=== PATIENT | female | born 1955 | race Caucasian/White ===

== ENCOUNTER → 2016-10-21 | Outpatient (CLI) | payer BC ==
[2016-10-21 07:53] LABS: Basophils % (A) 1 %; CH 31.5; CHCM 31.5; Eosinophils # (A) 0.2 k/uL (0-0.7); Eosinophils % (A) 6 %; HCT 41.3 % (34.0-46.0); HDW 2.31; HGB 12.9 gm/dL (11.4-16.0); Luc # (Auto) 0.12; Luc % (Auto) 3; Lymphocytes # (A) 1.4 k/uL (1.0-4.8); Lymphocytes % (A) 31 %; MCH 31.4 pg (25.0-35.0); MCHC 31.3 g/dL (31.0-37.0); MCV 100.5 fL (80.0-100.0); Mean Platelet Volume 7.6; Monocytes # (A) 0.3 k/uL (0-1.0); Monocytes % (A) 6 %; Neutrophils # (A) 2.3 k/uL (1.3-7.7); Neutrophils % (A) 53 %; RBC 4.11 m/uL (3.80-5.40); RDW 13.1 % (11.5-15.5); WBC 4.3 k/uL (3.8-10.6); WBC (Perox) 3.89
[2016-10-21 07:59] LABS: ALT 30 U/L (9-52); AST 22 U/L (14-36); Alkaline Phosphatase 36 U/L (38-126); Anion Gap 8 mmol/L; Blood Urea Nitrogen 22 mg/dL (7-17); Calcium 9.2 mg/dL (8.4-10.2); Carbon Dioxide 28 mmol/L (22-30); Chloride 108 mmol/L (98-107); Cholesterol 200 mg/dL (<200); Glucose 100 mg/dL (74-99); HDL Cholesterol 87 mg/dL (40-60); Non-African American GFR(MDRD) 59 (>60 ml/min/1.73 sqM); Potassium 5.5 mmol/L (3.5-5.1); Sodium 144 mmol/L (137-145); Total Bilirubin 0.5 mg/dL (0.2-1.3); Total Protein 6.5 g/dL (6.3-8.2); Triglycerides 97 mg/dL (<150)
== END ==
LOC: LABWHC1 07:10
PROVIDERS: ATTEND Family Medicine
DX: Z00.00 Encounter for general adult medical examination without abnormal findings (principal)
CPT/HCPCS: 36415; 80053; 80061; 82306; 84439; 84443; 85025

== ENCOUNTER → 2016-12-04 | Outpatient (CLI) | payer BC ==
--- NOTE | 2016-12-05 09:57 | BD ---
EXAMINATION TYPE: MG DEXA axial skeleton. DATE OF EXAM: 12/04/2016 3:44 PM COMPARISON: 06.25.2014 CLINICAL HISTORY: M81.0 OSTERPOROSIS Height: 63 Weight: 140 FRAX RISK QUESTIONS: Alcohol (3 or more units per day): NO Family History (Parent hip fracture): YES Glucocorticoids (More than 3mos): NO (Ex: prednisone, prednisolone, methylprednisolone, dexamethasone, and hydrocortisone). History of Fracture in Adulthood: NO Secondary Osteoporosis: NO 1. Type 1 Diabetes: NO 2. Hyperthyroidism: NO 3. Menopause before 45: NO 4. Malnutrition: NO 5. Chronic liver disease: NO Rheumatoid Arthritis: NO Current Tobacco Use: NO RISK FACTORS HISTORY OF: Family History of Osteoporosis: YES, MOTHER,BROKEN BONES BUT NOT HIP Smoke tobacco: NO Drink Alcohol: SOCIAL Active: YES Diet low in dairy products/other sources of calcium: NO Postmenopausal woman: AT 50 YRS OLD Lost more than 2 inches in height since high school: NO Adrenal Insufficiency: NO MEDICATIONS: Thyroid Medications: SYNTHROID How Long: SINCE AGE 19 YRS OLD Osteoporosis Medications: PROLIA INJ How Lon YRS Additional Medications: BP MEDS, ATIVAN PRN, VIT D Additional History: NONE TO NOTE EXAM MEASUREMENTS: Bone mineral densitometry was performed using the [employer] System. Bone mineral density as measured about the Lumbar spine is: ----- L1-L4(G/cm2): 0.953 T Score Values are as follows: ----- L1: -3.6 ----- L2: -2.5 ----- L3: -1.1 ----- L4: -0.8 ----- L1-L4: -1.9 Bone mineral density has: Increased 7.2% since study of: 06.25.2014 Bone mineral density about the R hip (g/cm2): 0.709 Bone mineral density about the L hip (g/cm2): 0.755 T Score values are as follows: -----R Neck: -2.4 -----L Neck: -2.1 -----R Intertrochanter: -2.2 -----L Intertrochanter: -2.0 Bone mineral density has: Increased 3.1% since study of: 06.25.2014 FRAX %'S: 11.5% CHANCE OF A MAJOR OSTEOPOROTIC FX AND A 2.1% FOR A HIP FX.....PROBABILITY OF FX IN 10 YRS TIME IMPRESSION: Osteoporosis (T Score less than -2.5) as noted by T Score values at the There is increased fracture risk and therapy is usually indicated based on age. Re-Screen 1-2 years . FOR HER SPINE AT THE L1 AND L2 SITE ONLY NOTE: T-SCORE=SD OF THE YOUNG ADULT MEAN.
--- NOTE | 2016-12-05 11:03 | MM ---
Reason for exam: screening (asymptomatic). Last mammogram was performed 2 years and 6 months ago. History: Patient is postmenopausal. Physical Findings: A clinical breast exam by your physician is recommended on an annual basis and results should be correlated with mammographic findings. MG Screening Mammo w CAD Bilateral CC and MLO view(s) were taken. Prior study comparison: June 04, 2014, bilateral MG diagnostic mammo w CAD JEAN-PIERRE. June 03, 2013, bilateral digital screening mammo w/CAD. The breast tissue is heterogeneously dense. This may lower the sensitivity of mammography. There is no discrete abnormality. No significant changes when compared with prior studies. ASSESSMENT: Negative, BI-RAD 1 RECOMMENDATION: Routine screening mammogram of both breasts in 1 year.
== END | disposition home or self-care (01) ==
LOC: RADMAMWWP 15:00
PROVIDERS: ATTEND Family Medicine
DX: Z12.31 Encounter for screening mammogram for malignant neoplasm of breast (principal); M81.0 Age-related osteoporosis without current pathological fracture
CPT/HCPCS: 77080; G0202

== ENCOUNTER → 2017-01-31 | Outpatient (CLI) | payer BC ==
[2017-01-31 15:40] LABS: ALT 26 U/L (9-52); AST 24 U/L (14-36); Alkaline Phosphatase 39 U/L (38-126); Anion Gap 9 mmol/L; Blood Urea Nitrogen 22 mg/dL (7-17); Calcium 9.2 mg/dL (8.4-10.2); Carbon Dioxide 28 mmol/L (22-30); Chloride 104 mmol/L (98-107); Glucose 81 mg/dL (74-99); Non-African American GFR(MDRD) >60 (>60 ml/min/1.73 sqM); Potassium 4.7 mmol/L (3.5-5.1); Sodium 141 mmol/L (137-145); Total Bilirubin 0.6 mg/dL (0.2-1.3); Total Protein 6.5 g/dL (6.3-8.2)
[2017-02-02 16:03] LABS: Mis test requested (Blood) Collagen Type 1(CTX)
[2017-02-03 18:38] LABS: Creatinine Urine Random 50.6 mg/dL (20.0-320.0)
== END | disposition home or self-care (01) ==
LOC: LABWHC1 14:48
PROVIDERS: ATTEND Internal Medicine Endocrinology, Diabetes & Metabolism
DX: E03.8 Other specified hypothyroidism (principal); M81.8 Other osteoporosis without current pathological fracture
CPT/HCPCS: 36415; 80053; 82306; 82523; 83970; 84443

== ENCOUNTER → 2017-10-27 | Outpatient (CLI) | payer BC ==
[2017-10-27 08:46] LABS: Basophils % (A) 1 %; Eosinophils # (A) 0.3 k/uL (0-0.7); Eosinophils % (A) 6 %; HCT 40.8 % (34.0-46.0); HGB 12.8 gm/dL (11.4-16.0); Lymphocytes # (A) 1.1 k/uL (1.0-4.8); Lymphocytes % (A) 26 %; MCH 30.3 pg (25.0-35.0); MCHC 31.3 g/dL (31.0-37.0); MCV 96.8 fL (80.0-100.0); Mean Platelet Volume 7.2; Monocytes # (A) 0.3 k/uL (0-1.0); Monocytes % (A) 7 %; Neutrophils # (A) 2.5 k/uL (1.3-7.7); Neutrophils % (A) 59 %; Platelet Count 244 k/uL (150-450); RBC 4.21 m/uL (3.80-5.40); WBC 4.3 k/uL (3.8-10.6)
[2017-10-27 09:01] LABS: ALT 24 U/L (9-52); AST 22 U/L (14-36); Albumin 3.7 g/dL (3.5-5.0); Alkaline Phosphatase 38 U/L (38-126); Anion Gap 7 mmol/L; Blood Urea Nitrogen 17 mg/dL (7-17); Calcium 8.7 mg/dL (8.4-10.2); Carbon Dioxide 27 mmol/L (22-30); Chloride 109 mmol/L (98-107); Cholesterol 185 mg/dL (<200); Glucose 84 mg/dL (74-99); HDL Cholesterol 80 mg/dL (40-60); LDL Cholesterol,Calculated 93 mg/dL (0-99); Potassium 4.8 mmol/L (3.5-5.1); Sodium 143 mmol/L (137-145); Total Bilirubin 0.4 mg/dL (0.2-1.3); Total Protein 6.2 g/dL (6.3-8.2); Triglycerides 61 mg/dL (<150)
[2017-10-27 09:15] LABS: T4, Free (Free Thyroxine) 1.71 ng/dL (0.78-2.19)
== END | disposition home or self-care (01) ==
LOC: LABWHC1 08:00
PROVIDERS: ATTEND Internal Medicine Endocrinology, Diabetes & Metabolism
DX: Z00.00 Encounter for general adult medical examination without abnormal findings (principal); M81.0 Age-related osteoporosis without current pathological fracture
CPT/HCPCS: 36415; 80053; 80061; 82523; 84439; 84443; 85025

== ENCOUNTER → 2018-01-18 | Outpatient (CLI) | payer BC ==
--- NOTE | 2018-01-22 07:07 | MM ---
Reason for exam: screening (asymptomatic). Last mammogram was performed 1 year and 1 month ago. History: Patient is postmenopausal. Physical Findings: A clinical breast exam by your physician is recommended on an annual basis and results should be correlated with mammographic findings. MG 3D Screening Mammo W/Cad Bilateral CC and MLO view(s) were taken. Prior study comparison: December 04, 2016, bilateral MG screening mammo w CAD. June 04, 2014, bilateral MG diagnostic mammo w CAD JEAN-PIERRE. There are scattered fibroglandular densities. Finding: There are typically benign round calcifications in the left breast. There is no discrete abnormality. ASSESSMENT: Benign, BI-RAD 2 RECOMMENDATION: Routine screening mammogram of both breasts in 1 year.
== END | disposition home or self-care (01) ==
LOC: RADMAMWWP 10:57
PROVIDERS: ATTEND Family Medicine
DX: Z12.31 Encounter for screening mammogram for malignant neoplasm of breast (principal)
CPT/HCPCS: 77063; 77067

== ENCOUNTER → 2018-09-14 | Outpatient (CLI) | payer OTHER ==
[2018-09-14 16:17] LABS: Parathyroid Hormone Intact 55.9 pg/mL (14.0-72.0)
[2018-09-14 16:37] LABS: Vitamin D 25 Hydroxy 26.5 ng/mL (30.0-100.0)
[2018-09-14 17:09] LABS: Albumin/Globulin Ratio 2.11 (1.60-3.17); Anion Gap 5.8 mmol/L (4.00-12.00); Calcium 9.1 mg/dL (8.7-10.3); Carbon Dioxide 28.2 mmol/L (21.6-31.8); Globulin 1.9 g/dL (1.6-3.3); Potassium 4.8 mmol/L (3.5-5.5); Total Bilirubin 0.5 mg/dL (0.2-1.2); Total Protein 5.9 g/dL (6.2-8.2)
== END | disposition home or self-care (01) ==
LOC: LABWHC1 09:06
PROVIDERS: ATTEND Internal Medicine Endocrinology, Diabetes & Metabolism
DX: M81.0 Age-related osteoporosis without current pathological fracture (principal)
CPT/HCPCS: 36415; 80053; 82306; 82523; 83970; 84443

== ENCOUNTER → 2019-02-20 | Outpatient (CLI) | payer OTHER ==
[2019-02-20 08:28] LABS: Basophils % (A) 0 %; Eosinophils # (A) 0.2 k/uL (0-0.7); Eosinophils % (A) 2 %; HCT 41.9 % (34.0-46.0); HGB 12.8 gm/dL (11.4-16.0); Lymphocytes % (A) 10 %; MCH 29.4 pg (25.0-35.0); MCHC 30.5 g/dL (31.0-37.0); MCV 96.4 fL (80.0-100.0); Mean Platelet Volume 6.8; Monocytes # (A) 0.6 k/uL (0-1.0); Monocytes % (A) 6 %; Neutrophils # (A) 7.9 k/uL (1.3-7.7); Neutrophils % (A) 81 %; Platelet Count 270 k/uL (150-450); RBC 4.35 m/uL (3.80-5.40); RDW 13.6 % (11.5-15.5); WBC 9.8 k/uL (3.8-10.6)
[2019-02-20 11:46] LABS: African American GFR (CKD) 91.6 (60.0-200.0); Albumin 4.3 g/dL (3.80-4.90); Albumin/Globulin Ratio 2.26 (1.60-3.17); Anion Gap 5.3 mmol/L (4.00-12.00); BUN/Creat Ratio 33.75 Ratio (12.00-20.00); Calcium 9.6 mg/dL (8.7-10.3); Carbon Dioxide 27.7 mmol/L (21.6-31.8); Globulin 1.9 g/dL (1.6-3.3); Potassium 5.9 mmol/L (3.5-5.5); Total Bilirubin 0.4 mg/dL (0.2-1.2); Total Protein 6.2 g/dL (6.2-8.2)
[2019-02-20 11:48] LABS: Parathyroid Hormone Intact 56.1 pg/mL (14.0-72.0)
[2019-02-20 11:55] LABS: T4, Free (Free Thyroxine) 1.4 ng/dL (0.80-1.80)
== END | disposition home or self-care (01) ==
LOC: LABWHC1 07:39
PROVIDERS: ATTEND Internal Medicine Endocrinology, Diabetes & Metabolism
DX: Z00.00 Encounter for general adult medical examination without abnormal findings (principal); M81.0 Age-related osteoporosis without current pathological fracture
CPT/HCPCS: 36415; 80053; 80061; 82306; 82523; 83970; 84439; 84443; 85025

== ENCOUNTER → 2019-03-05 | Outpatient (CLI) | payer OTHER ==
--- NOTE | 2019-03-05 09:41 | BD ---
EXAMINATION TYPE: Axial Bone Density DATE OF EXAM: 03/05/2019 COMPARISON: 12/07/2016 CLINICAL HISTORY: Postmenopausal female with osteoporosis per order. Height: 64 IN Weight: 147 LBS FRAX RISK QUESTIONS: Family History (Parent hip fracture): YES FATHER HIP FRACTURE RISK FACTORS HISTORY OF: Family History of Osteoporosis: YES MOTHER Active: YES Postmenopausal woman: AGE 49 MEDICATIONS: Thyroid Medications: YES Which medication: SYNTHROID How Long: SINCE AGE 19 Osteoporosis Medications: Which medication: Prolia How Lon YEARS Additional Medications: SYNTHROID, EXAM MEASUREMENTS: Bone mineral densitometry was performed using the [employer] System. Bone mineral density as measured about the Lumbar spine is: ----- L1-L4(G/cm2): 1.006 T Score Values are as follows: ----- L2: -2.1 ----- L3: -0.8 ----- L4: -0.1 ----- L1-L4: -1.4 Bone mineral density has: Increased 6.0% since study of: 12/07/2016 Bone mineral density about the R hip (g/cm2): 0.699 Bone mineral density about the L hip (g/cm2): 0.743 T Score values are as follows: -----R Neck: -2.4 -----L Neck: -2.1 -----R Total: -2.4 -----L Total: -2.0 Bone mineral density has: Decreased -0.7% since study of: 12/07/2016 IMPRESSION: Osteopenia (T Score between -2.5 and -1) now present overall. There is slightly increased risk of fracture and the patient may be considered for treatment. Re-Screen 2-5 years. NOTE: T-SCORE=SD OF THE YOUNG ADULT MEAN.
== END | disposition home or self-care (01) ==
LOC: RADBDWWP 08:08
PROVIDERS: ATTEND Internal Medicine Endocrinology, Diabetes & Metabolism
DX: M85.80 Other specified disorders of bone density and structure, unspecified site (principal)
CPT/HCPCS: 77080

== ENCOUNTER → 2019-03-05 | Outpatient (CLI) | payer OTHER ==
--- NOTE | 2019-03-05 13:12 | MM ---
Reason for exam: screening (asymptomatic). Last mammogram was performed 1 year and 2 months ago. History: Patient is postmenopausal. Physical Findings: A clinical breast exam by your physician is recommended on an annual basis and results should be correlated with mammographic findings. MG 3D Screening Mammo W/Cad Bilateral CC and MLO view(s) were taken. Prior study comparison: January 18, 2018, bilateral MG 3d screening mammo w/cad. December 04, 2016, bilateral MG screening mammo w CAD. There are scattered fibroglandular densities. There are benign appearing round calcifications in the left breast. There is no discrete abnormality. ASSESSMENT: Benign, BI-RAD 2 RECOMMENDATION: Routine screening mammogram of both breasts in 1 year.
== END | disposition home or self-care (01) ==
LOC: RADMAMWWP 08:06
PROVIDERS: ATTEND Family Medicine
DX: Z12.31 Encounter for screening mammogram for malignant neoplasm of breast (principal)
CPT/HCPCS: 77063; 77067

== ENCOUNTER → 2019-05-07 | Outpatient (CLI) | payer OTHER ==
[2019-05-07 21:57] LABS: African American GFR (CKD) 69.9 (60.0-200.0); Albumin 4.3 g/dL (3.80-4.90); Albumin/Globulin Ratio 2.26 (1.60-3.17); Anion Gap 10.8 mmol/L (4.00-12.00); Calcium 9.4 mg/dL (8.7-10.3); Carbon Dioxide 24.2 mmol/L (21.6-31.8); Globulin 1.9 g/dL (1.6-3.3); Potassium 5.1 mmol/L (3.5-5.5); Total Bilirubin 0.4 mg/dL (0.3-1.2); Total Protein 6.2 g/dL (6.2-8.2)
== END ==
LOC: LABWHC1 13:54
PROVIDERS: ATTEND Internal Medicine Endocrinology, Diabetes & Metabolism
DX: E03.8 Other specified hypothyroidism (principal); M81.0 Age-related osteoporosis without current pathological fracture
CPT/HCPCS: 36415; 80053; 82306; 84443

== ENCOUNTER → 2019-07-30 | Outpatient (CLI) | payer OTHER | END | disposition home or self-care (01) | LOC: LABWHC1 11:41 | PROVIDERS: ATTEND Internal Medicine Endocrinology, Diabetes & Metabolism | DX: M81.0 Age-related osteoporosis without current pathological fracture (principal) | CPT/HCPCS: 36415; 84443 ==

== ENCOUNTER → 2019-08-11 | Outpatient (CLI) | payer OTHER ==
[2019-08-11 13:56] LABS: Basophils % (A) 1 %; Eosinophils # (A) 0.1 k/uL (0-0.7); Eosinophils % (A) 1 %; HGB 13.8 gm/dL (11.4-16.0); Lymphocytes # (A) 0.9 k/uL (1.0-4.8); Lymphocytes % (A) 11 %; MCH 31.9 pg (25.0-35.0); MCHC 32.9 g/dL (31.0-37.0); MCV 97.1 fL (80.0-100.0); Mean Platelet Volume 7.2; Monocytes # (A) 0.5 k/uL (0-1.0); Monocytes % (A) 7 %; Neutrophils # (A) 6.5 k/uL (1.3-7.7); Neutrophils % (A) 80 %; Platelet Count 333 k/uL (150-450); RBC 4.33 m/uL (3.80-5.40); RDW 13.3 % (11.5-15.5); WBC 8.1 k/uL (3.8-10.6)
[2019-08-11 14:12] LABS: Appearance,Urine Clear (Clear); Bilirubin,Urine Negative (Negative); Blood,Urine Negative (Negative); Color,Urine Light Yellow; Glucose,Urine (UA) Negative (Negative); Ketones,Urine Negative (Negative); Leukocyte Esterase,Urine Negative (Negative); Nitrite,Urine Negative (Negative); Protein,Urine Negative (Negative); Specific Gravity,Urine 1.006 (1.001-1.035); Urobilinogen,Urine <2.0 mg/dL (<2.0)
== END | disposition home or self-care (01) ==
LOC: LABWHC1 11:05
PROVIDERS: ATTEND Orthopaedic Surgery Orthopaedic Surgery of the Spine
DX: M48.061 Spinal stenosis, lumbar region without neurogenic claudication (principal)
CPT/HCPCS: 36415; 81003; 85025

== ENCOUNTER → 2019-10-23 | Outpatient (CLI) | payer OTHER ==
[2019-10-23 11:23] LABS: African American GFR (CKD) 107.6 (60.0-200.0); Albumin 3.9 g/dL (3.80-4.90); Albumin/Globulin Ratio 1.86 (1.60-3.17); BUN/Creat Ratio 22.86 Ratio (12.00-20.00); Globulin 2.1 g/dL (1.6-3.3); Non-African American GFR(CKD) 92.9 (60.0-200.0); Total Bilirubin 0.4 mg/dL (0.2-1.2)
== END ==
LOC: LABWHC1 07:37
PROVIDERS: ATTEND Internal Medicine Endocrinology, Diabetes & Metabolism
DX: M81.0 Age-related osteoporosis without current pathological fracture (principal)
CPT/HCPCS: 36415; 80053; 82306; 84443

== ENCOUNTER → 2020-05-18 | Outpatient (CLI) | payer OTHER ==
[2020-05-18 09:56] LABS: Basophils # (A) 0.1 k/uL (0-0.2); Basophils % (A) 1 %; Eosinophils # (A) 0.5 k/uL (0-0.7); Eosinophils % (A) 8 %; HCT 43.5 % (34.0-46.0); HGB 13.8 gm/dL (11.4-16.0); Lymphocytes # (A) 1.1 k/uL (1.0-4.8); Lymphocytes % (A) 20 %; MCH 31.1 pg (25.0-35.0); MCHC 31.8 g/dL (31.0-37.0); MCV 97.9 fL (80.0-100.0); Mean Platelet Volume 7.1; Monocytes # (A) 0.4 k/uL (0-1.0); Monocytes % (A) 6 %; Neutrophils # (A) 3.7 k/uL (1.3-7.7); Neutrophils % (A) 64 %; Platelet Count 258 k/uL (150-450); RBC 4.45 m/uL (3.80-5.40); WBC 5.8 k/uL (3.8-10.6)
[2020-05-18 16:19] LABS: African American GFR (CKD) 90.9 (60.0-200.0); Anion Gap 10.1 mmol/L (4.00-12.00); Calcium 9.3 mg/dL (8.7-10.3); Carbon Dioxide 25.9 mmol/L (21.6-31.8); Chol/HDL Ratio 3.47; LDL Cholesterol,Calculated 142.2 mg/dL (0.0-131.0); Non-African American GFR(CKD) 78.5 (60.0-200.0); Total Bilirubin 0.4 mg/dL (0.3-1.2); VLDL Calculation 25.8 mg/dL (5.00-40.00)
[2020-05-18 16:27] LABS: T4, Free (Free Thyroxine) 1.6 ng/dL (0.80-1.80)
== END | disposition home or self-care (01) ==
LOC: LABWHC1 08:52
PROVIDERS: ATTEND Internal Medicine Endocrinology, Diabetes & Metabolism
DX: E78.5 Hyperlipidemia, unspecified (principal); E03.9 Hypothyroidism, unspecified; M81.0 Age-related osteoporosis without current pathological fracture
CPT/HCPCS: 36415; 80053; 80061; 82306; 82523; 83970; 84439; 84443; 84481; 85025

== ENCOUNTER → 2020-06-17 | Outpatient (CLI) | payer OTHER ==
--- NOTE | 2020-06-18 14:47 | MM ---
Reason for exam: screening (asymptomatic). Last mammogram was performed 1 year and 3 months ago. History: Patient is postmenopausal. Physical Findings: A clinical breast exam by your physician is recommended on an annual basis and results should be correlated with mammographic findings. MG 3D Screening Mammo W/Cad Bilateral CC and MLO view(s) were taken. Prior study comparison: March 05, 2019, bilateral MG 3d screening mammo w/cad. January 18, 2018, bilateral MG 3d screening mammo w/cad. There are scattered fibroglandular densities. No significant changes when compared with prior studies. ASSESSMENT: Benign, BI-RAD 2 RECOMMENDATION: Routine screening mammogram of both breasts in 1 year.
== END | disposition home or self-care (01) ==
LOC: RADMAMWWP 07:57
PROVIDERS: ATTEND Family Medicine
DX: Z12.31 Encounter for screening mammogram for malignant neoplasm of breast (principal)
CPT/HCPCS: 77063; 77067

== ENCOUNTER 2021-01-02 15:54 | Emergency (ER) | payer OTHER ==
[2021-01-02 16:20] VITALS: TEMP 98.5
[2021-01-02] MEDS ORDERED: HYDROmorphone 1 MG/ML 1 ML SYRINGE IM STA ×2 (16:54→18:01)
--- NOTE | 2021-01-02 16:58 | ED ---
Back Pain HPI - General Chief Complaint: Back Pain/Injury Stated Complaint: post op back pain Time Seen by Provider: 01/02/21 16:28 Source: patient - History of Present Illness Initial Comments: 65-year-old female history chronic back pain presents to emergency department with a chief complaint of back pain. Patient reports about one year ago she's underwent a lumbar fusion of L1 to L3 and has been mentioned pain with gabapentin and Flexeril alone. She states recently she went to another surgeon who advised her that she needs extensive revision of the fusion and she is currently setting up appointments with the [facility]. Patient reports the pain is not tolerable anymore and she is not able to an early due to the pain. She reports it feels like her "back is locked up". Reports the pain is rating distally over the left lower extremity. She also reported developing unilateral leg swelling over the past week but denies any chest pain or shortness of breath. Patient was given 100 g of fentanyl. She denies any saddle anesthesia, urinary retention with overflow incontinence or bowel incontinence. - Related Data Home Medications Medication Instructions Recorded Confirmed Metoprolol Succinate [Toprol XL] 25 mg PO DAILY 12/16/14 08/09/16 Aspirin [Adult Low Dose Aspirin EC] 81 mg PO DAILY 06/30/15 08/09/16 Levothyroxine Sodium [Levoxyl] 100 mcg PO DAILY 08/09/16 08/09/16 Previous Rx's Medication Instructions Recorded Ketorolac [Toradol] 10 mg PO Q8HR #15 tab 01/02/21 Allergies Allergy/AdvReac Type Severity Reaction Status Date / Time codeine Allergy Unknown Verified 08/09/16 15:16 erythromycin base Allergy Unknown Verified 08/09/16 15:16 [Erythromycin Base] metronidazole [From Flagyl] Allergy Rash/Hives Verified 01/02/21 16:21 amoxicillin trihydrate AdvReac Unknown Verified 01/02/21 16:21 [From Augmentin] potassium clavulanate AdvReac Unknown Verified 01/02/21 16:21 [From Augmentin] Review of Systems ROS Statement: Those systems with pertinent positive or pertinent negative responses have been documented in the HPI. ROS Other: All systems not noted in ROS Statement are negative. Past Medical History Past Medical History: Thyroid Disorder Additional Past Medical History / Comment(s): hypothyroid History of Any Multi-Drug Resistant Organisms: None Reported Past Surgical History: Back Surgery, Section, Cholecystectomy, Hysterectomy, Orthopedic Surgery Additional Past Surgical History / Comment(s): varicose vein, right shoulder, hemmroidectomy, sinus surgery, fusion S1-L3 Past Psychological History: Anxiety Smoking Status: Never smoker Past Alcohol Use History: Occasional Past Drug Use History: None Reported General Exam Limitations: physical limitation General appearance: alert, in no apparent distress, anxious Head exam: Present: atraumatic, normocephalic, normal inspection Eye exam: Present: normal appearance, PERRL, EOMI Pupils: Present: normal accommodation ENT exam: Present: normal exam, normal oropharynx, mucous membranes moist Neck exam: Present: normal inspection, full ROM. Absent: tenderness, lymphadenopathy Respiratory exam: Present: normal lung sounds bilaterally. Absent: respiratory distress Cardiovascular Exam: Present: regular rate, normal rhythm, normal heart sounds GI/Abdominal exam: Present: soft. Absent: distended, tenderness, guarding, rebound Extremities exam: Present: normal inspection, full ROM, normal capillary refill, pedal edema (+1 pitting edema left lower extremity). Absent: joint swelling, calf tenderness Back exam: Present: normal inspection, full ROM, tenderness, muscle spasm, paraspinal tenderness (Left paraspinal tenderness along the left lower extremity), vertebral tenderness Neurological exam: Present: alert, oriented X3 Psychiatric exam: Present: normal affect, normal mood Skin exam: Present: warm, dry, intact, normal color Course Vital Signs 01/02/21 01/02/21 01/02/21 16:12 18:04 19:05 Temperature 98.5 F Pulse Rate 75 72 70 Respiratory 20 18 16 Rate Blood Pressure 207/110 203/81 170/75 O2 Sat by Pulse 98 100 100 Oximetry Medical Decision Making - Medical Decision Making 65-year-old female history chronic back pain presents to emergency department with a chief complaint of back pain. This is acute on chronic back pain. She said CT imaging within the last month showing no acute findings of her lumbar spine. She also had MRI imaging or lumbar spine within the last year. She is attempting to get in contact with the [facility] spine surgery Department. Patient received Toradol, Dilaudid and emergency department which helped improve her symptoms. She reports the pain is much more bearable not. I did give her 5 days of Toradol prescription. She will also be discharged with Tylenol 3 starter pack. No concern for cauda equina at this time. Return parameters were thoroughly discussed with patient who is understandable agreeable. Case discussed with Disposition Clinical Impression: Mechanical back pain Disposition: HOME SELF-CARE Condition: Stable Instructions (If sedation given, give patient instructions): Acute Low Back Pain (ED) Additional Instructions: Temperature medication as directed. Return to emergency department if symptoms worsen. Prescriptions: Ketorolac [Toradol] 10 mg PO Q8HR #15 tab Is patient prescribed a controlled substance at d/c from ED?: No Referrals: Juan C Cantu MD [Primary Care Provider] - 1-2 days Time of Disposition: 19:23
[2021-01-02] MEDS ORDERED: KETOROLAC 15 MG/ML 1 ML VIAL IVP STA (18:01)
--- NOTE | 2021-01-02 18:19 | US ---
EXAMINATION TYPE: US venous doppler duplex LE LT DATE OF EXAM: 01/02/2021 5:22 PM COMPARISON: NONE CLINICAL HISTORY: Unilateral of swelling. left leg swelling for 1 week, h/o DVT within left leg in 20 05, not on thinners currently SIDE PERFORMED: Left TECHNIQUE: The lower extremity deep venous system is examined utilizing real time linear array sonog kristy with graded compression, doppler sonography and color-flow sonography. VESSELS IMAGED: Common Femoral Vein Deep Femoral Vein Greater Saphenous Vein * Femoral Vein Popliteal Vein Small Saphenous Vein * Proximal Calf Veins (* superficial vessels) Left Leg: Negative for DVT IMPRESSION: No evidence of left lower extremity DVT.
[2021-01-02 19:06] VITALS: BP 170/75; PULSE 70; RESP 16
[2021-01-02] MEDS ORDERED: ACET/COD 300 MG/30 MG STARTER PACK 6 TAB BTL PO STA (19:23)
== END 2021-01-02 19:29 | disposition home or self-care (01) ==
LOC: EC 15:54
DX: M54.9 Dorsalgia, unspecified (principal); G89.29 Other chronic pain; M79.89 Other specified soft tissue disorders; M79.605 Pain in left leg; E03.9 Hypothyroidism, unspecified; F41.9 Anxiety disorder, unspecified; Z79.890 Hormone replacement therapy; Z79.82 Long term (current) use of aspirin
CPT/HCPCS: 93971; 99284; 96374; 96372 ×2; J1170; J1885

== ENCOUNTER → 2021-01-18 | Outpatient (CLI) | payer OTHER ==
[2021-01-22 00:53] LABS: Creatinine Urine Random 32 mg/dL (20-275); N-Telopeptides/Creat Ratio, Ur 31
== END | disposition home or self-care (01) ==
LOC: LABWHC1 12:57
PROVIDERS: ATTEND Internal Medicine Endocrinology, Diabetes & Metabolism
DX: E03.8 Other specified hypothyroidism (principal); M81.0 Age-related osteoporosis without current pathological fracture
CPT/HCPCS: 36415; 82306; 82523; 83970; 84443

== ENCOUNTER → 2021-04-15 | Outpatient (CLI) | payer OTHER ==
[2021-04-16 18:26] LABS: African American GFR (CKD) 78.3 (60.0-200.0); Non-African American GFR(CKD) 67.6 (60.0-200.0)
== END | disposition home or self-care (01) ==
LOC: LABWHC1 11:52
PROVIDERS: ATTEND Specialist
DX: M81.0 Age-related osteoporosis without current pathological fracture (principal)
CPT/HCPCS: 36415; 82565; 84520

== ENCOUNTER → 2021-07-29 | Outpatient (CLI) | payer OTHER ==
--- NOTE | 2021-07-29 11:16 | XR ---
EXAMINATION TYPE: XR abdomen 2V DATE OF EXAM: 07/29/2021 COMPARISON: NONE HISTORY: Presurgical TECHNIQUE: One view abdominal series FINDINGS: Postsurgical changes involving the vertebral column. Surgical change right upper quadrant. Lung bases clear. Diffuse osteopenia. Arthropathy of the hips. Bowel gas pattern nonspecific. IMPRESSION: 1. Nonspecific abdomen. Occasional air-fluid level could be on the basis of a localized ileus or ente ritis correlate clinically.
--- NOTE | 2021-07-29 11:18 | XR ---
EXAMINATION TYPE: XR chest 2V DATE OF EXAM: 07/29/2021 COMPARISON: NONE TECHNIQUE: PA and lateral views submitted. HISTORY: Presurgical FINDINGS: The lungs are clear and there is no pneumothorax, pleural effusion, or focal pneumonia. Diffuse ost eopenia. Postsurgical change right shoulder and arthropathy bilateral shoulders. Postoperative change involving vertebral column. Degenerative change of the spine. Mild hyperinflation correlate for COPD . Vague nodule right upper lobe 7 mm. IMPRESSION: 1. No acute process. 2. Correlate for COPD. Recommend CT of the chest to assess 7 mm vague nodule right upper lobe.
--- NOTE | 2021-07-29 11:19 | XR ---
EXAM TYPE: LUMBAR SPINE X RAY SERIES COMPARISON: NONE HISTORY: Presurgical TECHNIQUE: 4 views are submitted. FINDINGS: Extensive postoperative change involving levels L3-S1. Fusion and interpedicular screws are noted. Al ignment is near-anatomic with multilevel degenerative disc disease and hypertrophic spurring. Moderat e to severe changes at L2-L3. Alignment demonstrates a slight anterolisthesis of L4 on L5 which may b e slightly more prominent on extension view relative to neutral. IMPRESSION: 1. Postoperative change.
== END | disposition home or self-care (01) ==
LOC: RADXRMAIN 10:21
PROVIDERS: ATTEND Specialist
DX: M53.3 Sacrococcygeal disorders, not elsewhere classified (principal); Z98.1 Arthrodesis status
CPT/HCPCS: 71046; 72110; 74019

== ENCOUNTER → 2021-08-03 | Outpatient (CLI) | payer OTHER | END | disposition home or self-care (01) | LOC: LABPAT 09:25 | PROVIDERS: ATTEND Specialist | DX: Z53.9 Procedure and treatment not carried out, unspecified reason (principal) ==

== ENCOUNTER → 2021-08-03 | Outpatient (CLI) | payer OTHER ==
[2021-08-03 11:20] LABS: Appearance,Urine Clear (Clear); Bilirubin,Urine Negative (Negative); Blood,Urine Negative (Negative); Calcium Oxalate Crystals,Urine Few /hpf; Color,Urine Yellow; Glucose,Urine (UA) Negative (Negative); Hyaline Casts,Urine 2 /lpf (0-2); Ketones,Urine Negative (Negative); Leukocyte Esterase,Urine Moderate (Negative); Mucus,Urine Many /hpf; Nitrite,Urine Negative (Negative); PH, Urine 5.5 (5.0-8.0); Protein,Urine Trace (Negative); RBC,Urine 3 /hpf (0-5); Specific Gravity,Urine 1.028 (1.001-1.035); Squamous Epithelial Cell,Urine 4 /hpf (0-4); Urobilinogen,Urine <2.0 mg/dL (<2.0); WBC,Urine 3 /hpf (0-5)
[2021-08-03 14:59] LABS: Basophils # (A) 0.04 X 10*3/uL (0.00-0.10); Basophils % (A) 0.8 %; Eosinophils # (A) 0.17 X 10*3/uL (0.04-0.35); Eosinophils % (A) 3.3 %; HCT 45.1 % (37.2-46.3); Lymphocytes # (A) 1.23 X 10*3/uL (0.90-5.00); Lymphocytes % (A) 23.6 %; MCH 30.6 pg (27.0-32.0); MCV 98.7 fL (80.0-97.0); Mean Platelet Volume 10.2 fL (9.5-12.2); Monocytes # (A) 0.41 X 10*3/uL (0.20-1.00); Monocytes % (A) 7.9 %; Neutrophils # (A) 3.34 X 10*3/uL (1.80-7.70); Platelet Count 267 X 10*3/uL (140-440); RBC 4.57 X 10*6/uL (4.10-5.20); RDW 13.9 % (11.5-14.5); WBC 5.21 X 10*3/uL (4.50-10.00)
[2021-08-03 15:11] LABS: INR 0.87 (0.90-1.11); Prothrombin Time 9.9 sec (9.9-11.9)
[2021-08-03 17:00] LABS: ALT 19 U/L (8-44); AST 20 U/L (13-35); African American GFR (CKD) 83.4 (60.0-200.0); Albumin 4.6 g/dL (3.8-4.9); Albumin/Globulin Ratio 2.03 (1.60-3.17); Alkaline Phosphatase 50 U/L (41-126); BUN/Creat Ratio 16.04 Ratio (12.00-20.00); Blood Urea Nitrogen 13.7 mg/dL (9.0-27.0); Calcium 9.6 mg/dL (8.7-10.3); Carbon Dioxide 24.2 mmol/L (20.0-27.5); Chloride 105 mmol/L (96-109); Chol/HDL Ratio 3.97 Ratio; Globulin 2.3 g/dL (1.6-3.3); Glucose 89 mg/dL (70-110); LDL Cholesterol,Calculated 168.8 mg/dL (0.0-131.0); Sodium 144 mmol/L (135-145); Total Protein 6.9 g/dL (6.2-8.2)
== END | disposition home or self-care (01) ==
LOC: LABWHC1 09:28
PROVIDERS: ATTEND Family Medicine
DX: E78.5 Hyperlipidemia, unspecified (principal); E03.9 Hypothyroidism, unspecified
CPT/HCPCS: 36415; 80053; 80061; 81001; 84439; 84443; 85025; 85610; 87070; 93005

== ENCOUNTER → 2021-10-10 | Outpatient (CLI) | payer OTHER ==
[2021-10-11 00:58] LABS: African American GFR (CKD) 81.3 (60.0-200.0); Albumin 4.8 g/dL (3.8-4.9); Albumin/Globulin Ratio 1.92 (1.60-3.17); Anion Gap 14.2 mmol/L (10.00-18.00); BUN/Creat Ratio 22.45 Ratio (12.00-20.00); Blood Urea Nitrogen 19.6 mg/dL (9.0-27.0); Calcium 10.4 mg/dL (8.7-10.3); Globulin 2.5 g/dL (1.6-3.3); Non-African American GFR(CKD) 70.1 (60.0-200.0); T4, Free (Free Thyroxine) 2.44 ng/dL (0.800-1.800); Total Bilirubin 0.3 mg/dL (0.30-1.20); Total Protein 7.2 g/dL (6.2-8.2)
== END | disposition home or self-care (01) ==
LOC: LABWHC1 15:28
PROVIDERS: ATTEND Internal Medicine Endocrinology, Diabetes & Metabolism
DX: M81.0 Age-related osteoporosis without current pathological fracture (principal); E03.8 Other specified hypothyroidism
CPT/HCPCS: 36415; 80053; 82306; 82523; 83970; 84439; 84443

== ENCOUNTER → 2021-10-10 | Outpatient (CLI) | payer OTHER ==
--- NOTE | 2021-10-11 10:50 | MM ---
Reason for exam: screening (asymptomatic). Last mammogram was performed 1 year and 4 months ago. History: Patient is postmenopausal. Physical Findings: A clinical breast exam by your physician is recommended on an annual basis and results should be correlated with mammographic findings. MG 3D Screening Mammo W/Cad Bilateral CC and MLO view(s) were taken. Prior study comparison: June 17, 2020, bilateral MG 3d screening mammo w/cad. March 05, 2019, bilateral MG 3d screening mammo w/cad. There are scattered fibroglandular densities. There are benign appearing round, grouped calcifications in the left breast. There is no discrete abnormality. ASSESSMENT: Benign, BI-RAD 2 RECOMMENDATION: Routine screening mammogram of both breasts in 1 year.
== END | disposition home or self-care (01) ==
LOC: RADMAMWWP 15:54
PROVIDERS: ATTEND Family Medicine
DX: Z12.31 Encounter for screening mammogram for malignant neoplasm of breast (principal)
CPT/HCPCS: 77063; 77067

== ENCOUNTER → 2021-10-10 | Day surgery (SDC) | payer OTHER | LOC: ORWHC2ENDO 15:38 | PROVIDERS: ATTEND Surgery | DX: Z12.31 Encounter for screening mammogram for malignant neoplasm of breast (principal); Z53.9 Procedure and treatment not carried out, unspecified reason ==

== ENCOUNTER → 2021-10-31 | Outpatient (CLI) | payer OTHER ==
--- NOTE | 2021-10-31 11:08 | XR ---
EXAMINATION TYPE: XR pelvis AP view DATE OF EXAM: 10/31/2021 COMPARISON: NONE HISTORY: Postop The osseous structures are intact and the joint spaces are preserved. No acute fracture is seen. Vi sualized bowel gas pattern is nonspecific. Postsurgical change lower lumbar spine and left sacroilia c region. Arthropathy of the hips with diffuse osteopenia. Calcifications in the pelvis are likely va scular. IMPRESSION: 1. Postoperative change. 2. Osteopenia.
== END | disposition home or self-care (01) ==
LOC: RADXRMAIN 10:49
PROVIDERS: ATTEND Specialist
DX: M85.80 Other specified disorders of bone density and structure, unspecified site (principal); M46.1 Sacroiliitis, not elsewhere classified
CPT/HCPCS: 72170

== ENCOUNTER → 2022-04-18 | Outpatient (CLI) | payer MEDICARE ==
[2022-04-18 11:28] LABS: African American GFR (CKD) 77.8 (60.0-200.0); Albumin 4.3 g/dL (3.8-4.9); Albumin/Globulin Ratio 2.05 (1.60-3.17); Anion Gap 11.8 mmol/L (10.00-18.00); BUN/Creat Ratio 16.22 Ratio (12.00-20.00); Blood Urea Nitrogen 14.6 mg/dL (9.0-27.0); Calcium 9.3 mg/dL (8.7-10.3); Carbon Dioxide 25.2 mmol/L (20.0-27.5); Globulin 2.1 g/dL (1.6-3.3); Non-African American GFR(CKD) 67.1 (60.0-200.0); Potassium 4.4 mmol/L (3.5-5.5); Total Bilirubin 0.3 mg/dL (0.30-1.20); Total Protein 6.4 g/dL (6.2-8.2)
== END | disposition home or self-care (01) ==
LOC: LABWHC1 08:01
PROVIDERS: ATTEND Internal Medicine Endocrinology, Diabetes & Metabolism
DX: M81.0 Age-related osteoporosis without current pathological fracture (principal)
CPT/HCPCS: 36415; 80053; 82306; 84443

== ENCOUNTER → 2022-05-10 | Outpatient (CLI) | payer MEDICARE ==
[~2022-05-10] MED LIST: DENOSUMAB 60 MG/ML 1 ML SYRINGE SQ NR
[2022-05-10 13:16] VITALS: BP 161/84; PULSE 71; RESP 16; TEMP 98
== END ==
LOC: PROCWHC3 12:45
PROVIDERS: ATTEND Internal Medicine Endocrinology, Diabetes & Metabolism
DX: M81.0 Age-related osteoporosis without current pathological fracture (principal); Z88.5 Allergy status to narcotic agent; Z88.1 Allergy status to other antibiotic agents; Z87.891 Personal history of nicotine dependence
CPT/HCPCS: 96372; J0897

== ENCOUNTER → 2022-05-11 | Outpatient (CLI) | payer MEDICARE ==
--- NOTE | 2022-05-11 17:48 | BD ---
EXAMINATION TYPE: Axial Bone Density DATE OF EXAM: 05/11/2022 COMPARISON: NONE CLINICAL HISTORY: 66 years year old Female. ICD-10 CODE: M81.0 Osteoporosis Height: 5 FT 5 IN Weight: 148 FRAX RISK QUESTIONS: Alcohol (3 or more units per day): NO Family History (Parent hip fracture): NO Glucocorticoids (More than 3mos): NO (Ex: prednisone, prednisolone, methylprednisolone, dexamethasone, and hydrocortisone). History of Fracture in Adulthood: NO Secondary Osteoporosis: 1. Type 1 Diabetes: NO 2. Hyperthyroidism: NO 3. Menopause before 45: NO 4. Malnutrition: NO 5. Chronic liver disease: NO Rheumatoid Arthritis: NO Current Tobacco Use: NO RISK FACTORS HISTORY OF: Surgery to Spine/Hip(right/left)/Wrist (right/left): LUMBAR WITH HARDWARE When: 2019 Family History of Osteoporosis: YES Active: NO Diet low in dairy products/other sources of calcium: NO Postmenopausal woman: YES Take estrogen and/or progesterone medications: NO Lost more than 2 inches in height since high school: NO Frequent falls: NO Poor Health: GOOD Hyperparathyroidism: NO Adrenal Insufficiency: NO MEDICATIONS: Thyroid Medications: YES Which medication: SYNTHROID How Long: SINCE AGE 19 Additional Medications: SYNTHROID, GABAPENTIN, ZANAFLEX, KLONIPEN, Additional History: BEEN ON PROLIA FOR 5-6 YEARS EXAM MEASUREMENTS: Bone mineral density about the R hip (g/cm2): 0.706 Bone mineral density about the L hip (g/cm2): 0.774 T Score values are as follows: -----R Neck: -2.4 -----L Neck: -1.9 -----R Total: -2.1 -----L Total: -1.6 Bone mineral density has: INCREASED 6.0 % since study of: 2017 Bone mineral density about the L Wrist (g/cm2): 0.449 T Score values are as follows: -----Dist. R+U: -3.5 -----Prox. R+U: -2.5 -----Radius total: -3.7 FIRST TOME WRIST HAS BEEN DONE FRAX%s: The graph provided illustrates a 12.7 % chance for a major osteoporotic fx and a 2.6 % chance for the hips probability for fx in 10 years time. IMPRESSION: Osteoporosis (T Score less than -2.5). There is increased fracture risk and therapy is usually indicated based on age. Re-Screen 1-2 years. NOTE: T-SCORE=SD OF THE YOUNG ADULT MEAN.
== END | disposition home or self-care (01) ==
LOC: RADBDWWP 07:02
PROVIDERS: ATTEND Internal Medicine Endocrinology, Diabetes & Metabolism
DX: M81.0 Age-related osteoporosis without current pathological fracture (principal)
CPT/HCPCS: 77080

== ENCOUNTER 2022-05-16 10:00 | Day surgery (SDC) | payer MEDICARE, OTHER ==
[2022-05-12 14:22] VITALS: BMI 25.0
[~2022-05-16 10:00] MED LIST changes: -DENOSUMAB 60 MG/ML 1 ML SYRINGE SQ NR; +LACTATED RINGERS 1,000 ML IV SCH; +LIDOCAINE 1% (10MG/ML) FOR IV START INTRADERMA PRN; +ONDANSETRON 4 MG/2 ML VIAL IVP PRN
[2022-05-16 10:20] VITALS: TEMP 96.9
[2022-05-16] MEDS ORDERED: PROPOFOL 10 MG/ML 20 ML VIAL IV ONE (10:40)
[2022-05-16] MEDS ORDERED: LIDOCAINE 2% INJ 20 MG/ML (2 ML VIAL) ONE (10:40)
--- NOTE | 2022-05-16 10:46 | P.GSHP ---
History of Present Illness H&P Date: 05/16/22 Chief Complaint: Colon cancer screening 66-year-old female here today for colonoscopy. Last colonoscopy 7 years ago. That study was normal. No bowel complaints. Family history of colon cancer in her paternal grandmother. Past Medical History Past Medical History: Thyroid Disorder Additional Past Medical History / Comment(s): chronic back pain History of Any Multi-Drug Resistant Organisms: None Reported Past Surgical History: Appendectomy, Back Surgery, Section, Cholecystectomy, Hysterectomy, Orthopedic Surgery Additional Past Surgical History / Comment(s): varicose vein removal, right shoulder surg., hemorrhoidectomy, sinus surgery, fusion S1-L3 Past Anesthesia/Blood Transfusion Reactions: Postoperative Nausea & Vomiting (PONV) Past Psychological History: Anxiety Smoking Status: Never smoker Past Alcohol Use History: Occasional Past Drug Use History: None Reported Medications and Allergies Home Medications Medication Instructions Recorded Confirmed Type Aspirin [Adult Low Dose Aspirin EC] 325 mg PO Q48H 06/30/15 05/12/22 History Gabapentin [Neurontin] 300 mg PO BID 05/10/22 05/16/22 History clonazePAM [KlonoPIN] 1 mg PO DIRECTED PRN 05/10/22 05/16/22 History tiZANidine HCL [Zanaflex] 4 mg PO BID 05/10/22 05/16/22 History Levothyroxine Sodium [Synthroid] 125 mcg PO DAILY 05/12/22 05/16/22 History Allergies Allergy/AdvReac Type Severity Reaction Status Date / Time abaloparatide [From Tymlos] Allergy Unknown Verified 05/16/22 10:21 codeine Allergy Unknown Verified 05/16/22 10:21 erythromycin base Allergy Unknown Verified 05/16/22 10:21 [Erythromycin Base] metronidazole [From Flagyl] Allergy Rash/Hives Verified 05/16/22 10:21 amoxicillin trihydrate AdvReac Unknown Verified 05/16/22 10:21 [From Augmentin] morphine AdvReac Nausea & Verified 05/16/22 10:21 Vomiting potassium clavulanate AdvReac Unknown Verified 05/16/22 10:21 [From Augmentin] Surgical - Exam Vital Signs Temp Pulse Resp BP Pulse Ox 96.9 F L 82 16 169/102 98 05/16/22 10:18 05/16/22 10:18 05/16/22 10:18 05/16/22 10:18 05/16/22 10:18 Physical exam: General: Well-developed, well-nourished HEENT: Normocephalic, sclerae nonicteric Abdomen: Nontender, nondistended Extremities: No edema Neuro: Alert and oriented Assessment and Plan (1) Colon cancer screening Narrative/Plan: Will proceed with colonoscopy at this time. Current Visit: Yes Status: Acute Code(s): Z12.11 - ENCOUNTER FOR SCREENING FOR MALIGNANT NEOPLASM OF COLON SNOMED Code(s): 191311987
--- NOTE | 2022-05-16 11:00 | P.PCN ---
Date of Procedure: 05/16/22 Procedure(s) Performed: PREOPERATIVE DIAGNOSIS: Colon cancer screening POSTOPERATIVE DIAGNOSIS: Normal exam PROCEDURE: Colonoscopy ANESTHESIA: MAC SURGEON: Juan Pang M.D. SPECIMENS: None ENDOSCOPIC PROCEDURE: The patient was placed on the endoscopy table in the left decubitus position. The Olympus colonoscope was inserted into the anus and passed under direct visualization to the base of the cecum. The appendiceal orifice was visualized. From that point the scope was slowly withdrawn inspecti ng all surfaces carefully. There were no neoplastic inflammatory or polypoid lesions throughout the cecum, ascending, transverse, descending, sigmoid and rectum. There was no visible diverticulosis noted. Digital rectal examination was normal. The patient was taken to the recovery room in stable condition per anesthesia guidelines. RECOMMENDATIONS: Resume diet. Follow colonoscopy 7-10 years.
[2022-05-16 11:31] VITALS: BP 145/65; PULSE 52; RESP 16
== END 2022-05-16 11:50 | disposition home or self-care (01) ==
LOC: ORWHC2ENDO 10:00
PROVIDERS: ATTEND Surgery
DX: Z12.11 Encounter for screening for malignant neoplasm of colon (principal); E07.9 Disorder of thyroid, unspecified; G89.29 Other chronic pain; M54.9 Dorsalgia, unspecified; K91.0 Vomiting following gastrointestinal surgery; F41.9 Anxiety disorder, unspecified; F10.90 Alcohol use, unspecified, uncomplicated; Z90.49 Acquired absence of other specified parts of digestive tract; Z98.891 History of uterine scar from previous surgery; Z98.890 Other specified postprocedural states; Z90.710 Acquired absence of both cervix and uterus; Z79.82 Long term (current) use of aspirin; Z79.899 Other long term (current) drug therapy; Z79.890 Hormone replacement therapy; Z88.5 Allergy status to narcotic agent; Z88.1 Allergy status to other antibiotic agents; Z88.0 Allergy status to penicillin; Z88.8 Allergy status to other drugs, medicaments and biological substances; Z88.6 Allergy status to analgesic agent
CPT/HCPCS: G0121; J2704; J2001; 45378

== ENCOUNTER → 2022-06-01 | Outpatient (CLI) | payer MEDICARE ==
[2022-06-01 08:20] LABS: Appearance,Urine Clear (Clear); Bilirubin,Urine Negative (Negative); Blood,Urine Negative (Negative); Color,Urine Light Yellow; Glucose,Urine (UA) Negative (Negative); Ketones,Urine Negative (Negative); Leukocyte Esterase,Urine Negative (Negative); Nitrite,Urine Negative (Negative); PH, Urine 7.5 (5.0-8.0); Protein,Urine Negative (Negative); Specific Gravity,Urine 1.008 (1.001-1.035); Urobilinogen,Urine <2.0 mg/dL (<2.0)
[2022-06-01 10:15] LABS: Basophils # (A) 0.05 X 10*3/uL (0.00-0.10); Basophils % (A) 0.9 %; Eosinophils # (A) 0.22 X 10*3/uL (0.04-0.35); HCT 41.2 % (37.2-46.3); HGB 13.8 g/dL (12.0-15.0); Immature Grans, Automated 0.4 %; Lymphocytes # (A) 1.73 X 10*3/uL (0.90-5.00); Lymphocytes % (A) 31.6 %; MCH 31.8 pg (27.0-32.0); MCHC 33.5 g/dL (32.0-37.0); MCV 94.9 fL (80.0-97.0); Mean Platelet Volume 9.5 fL (9.5-12.2); Monocytes % (A) 9.1 %; NRBC Per 100 WBC 0 /100 WBCS (0.0-0.0); Neutrophils # (A) 2.95 X 10*3/uL (1.80-7.70); Platelet Count 217 X 10*3/uL (140-440); RBC 4.34 X 10*6/uL (4.10-5.20); WBC 5.47 X 10*3/uL (4.50-10.00)
[2022-06-01 10:26] LABS: African American GFR (CKD) 91.7 (60.0-200.0); Albumin 4.4 g/dL (3.8-4.9); Albumin/Globulin Ratio 1.68 (1.60-3.17); Anion Gap 8.5 mmol/L (10.00-18.00); BUN/Creat Ratio 21.15 Ratio (12.00-20.00); Blood Urea Nitrogen 16.6 mg/dL (9.0-27.0); Calcium 9.3 mg/dL (8.7-10.3); Carbon Dioxide 25.3 mmol/L (20.0-27.5); Globulin 2.6 g/dL (1.6-3.3); Non-African American GFR(CKD) 79.2 (60.0-200.0); Potassium 4.1 mmol/L (3.5-5.5); Total Bilirubin 0.4 mg/dL (0.30-1.20)
== END | disposition home or self-care (01) ==
LOC: LABWHC1 07:46
PROVIDERS: ATTEND Neurological Surgery
DX: Z01.812 Encounter for preprocedural laboratory examination (principal); M51.36 Other intervertebral disc degeneration, lumbar region; M43.16 Spondylolisthesis, lumbar region; M48.061 Spinal stenosis, lumbar region without neurogenic claudication
CPT/HCPCS: 36415; 80053; 81003; 85025

== ENCOUNTER → 2022-11-08 | Outpatient (CLI) | payer MEDICARE ==
[~2022-11-08] MED LIST changes: +DENOSUMAB 60 MG/ML 1 ML SYRINGE SQ NR; -LACTATED RINGERS 1,000 ML IV SCH; -LIDOCAINE 1% (10MG/ML) FOR IV START INTRADERMA PRN; -ONDANSETRON 4 MG/2 ML VIAL IVP PRN
[2022-11-08 14:13] VITALS: BP 195/95; PULSE 77; RESP 16; TEMP 98.1
== END ==
LOC: PROCWHC3 12:38
PROVIDERS: ATTEND Internal Medicine Endocrinology, Diabetes & Metabolism
DX: M81.0 Age-related osteoporosis without current pathological fracture (principal); Z88.5 Allergy status to narcotic agent; Z88.1 Allergy status to other antibiotic agents; Z88.0 Allergy status to penicillin; Z91.02 Food additives allergy status; Z87.891 Personal history of nicotine dependence
CPT/HCPCS: 96372; J0897

== ENCOUNTER → 2023-01-15 | Outpatient (CLI) | payer MEDICARE ==
--- NOTE | 2023-01-16 09:20 | CA ---
Transthoracic Echo Report Name: Maria D Wade Age: 67 Gender: F : 1955 Exam Date: 01/15/2023 14:39 Exam Location: [place] [facility] Ht (in): 65 Wt (lb): 148 Ordering Physician: Juan C Cantu MD Attending/Referring Phys: HARISH, Pepe Controls Technician Renay Marvin JOSE DANIEL Procedure CPT: Indications: I10 HTN Cardiac Hx: Technical Quality: Fair Contrast 1: Total Dose (mL): Contrast 2: Total Dose (mL): MEASUREMENTS (Male / Female) Normal Values 2D ECHO LV Diastolic Diameter PLAX 3.5 cm 4.2 - 5.9 / 3.9 - 5.3 cm LV Systolic Diameter PLAX 2.1 cm IVS Diastolic Thickness 0.8 cm 0.6 - 1.0 / 0.6 - 0.9 cm LVPW Diastolic Thickness 1.1 cm 0.6 - 1.0 / 0.6 - 0.9 cm LV Relative Wall Thickness 0.5 RV Internal Dim ED PLAX 3.1 cm LA Volume 37.1 cm??? 18 - 58 / 22 - 52 cm??? M-MODE Aortic Root Diameter MM 2.1 cm LA Systolic Diameter MM 3.4 cm LA Ao Ratio MM 1.6 AV Cusp Separation MM 1.5 cm DOPPLER AV Peak Velocity 124.3 cm/s AV Peak Gradient 6.2 mmHg AV Mean Velocity 87.6 cm/s AV Mean Gradient 3.4 mmHg AV Velocity Time Integral 28.7 cm LVOT Peak Velocity 101.5 cm/s LVOT Peak Gradient 4.1 mmHg LVOT Velocity Time Integral 22.7 cm MV Area PHT 3.8 cm??? Mitral E Point Velocity 70.0 cm/s Mitral A Point Velocity 79.5 cm/s Mitral E to A Ratio 0.9 MV Deceleration Time 198.9 ms MV E' Velocity 7.8 cm/s Mitral E to MV E' Ratio 9.0 TR Peak Velocity 225.5 cm/s TR Peak Gradient 20.3 mmHg Right Ventricular Systolic Press 25.3 mmHg FINDINGS Left Ventricle Normal Left ventricular size, wall thickness, systolic function with no obvious regional wall motion abnormalities. Normal Left ventricular diastolic filling pattern. Left ventricular ejection fraction is estimated at 55-60 %. Right Ventricle Normal right ventricular size and function. Right ventricular systolic pressure within normal limits. Right Atrium Normal right atrial size. Left Atrium Normal left atrial size. Mitral Valve Structurally normal mitral valve. No mitral stenosis, regurgitation or prolapse. Aortic Valve Trileaflet aortic valve. No aortic valve stenosis or regurgitation. Tricuspid Valve Structurally normal tricuspid valve. Mild tricuspid regurgitation. Pulmonic Valve Trace pulmonic regurgitation. Pericardium No pericardial effusion. Aorta Normal size aortic root and proximal ascending aorta. CONCLUSIONS Normal LV systolic function Previewed by: Dr. Jamarcus Fatima MD (Electronically Signed) Final Date: 16 January 2023 09:19
== END | disposition home or self-care (01) ==
LOC: RADECHMAIN 14:14
PROVIDERS: ATTEND Family Medicine
DX: I07.1 Rheumatic tricuspid insufficiency (principal); I37.1 Nonrheumatic pulmonary valve insufficiency; I10 Essential (primary) hypertension
CPT/HCPCS: 93306

== ENCOUNTER → 2023-01-22 | Outpatient (CLI) | payer MEDICARE ==
--- NOTE | 2023-01-22 19:56 | MR ---
EXAMINATION TYPE: MR lumbar spine wo/w con DATE OF EXAM: 01/22/2023 6:54 PM COMPARISON: Prior from from gross point Raquel was not available at time of dictation. CLINICAL INDICATION: Female, 67 years old with history of M47.816; Low back pain that radiates into l eft and right buttocks TECHNIQUE: Multi planar, multi sequence imaging was performed utilizing: T1-weighted, T2-weighted, a nd turbo inversion recovery imaging of the lumbar spine. IV Contrast: 7 cc Gadavist. None. FINDINGS: Alignment: The lumbar vertebral bodies have preserved heights and alignment. Cord: The conus medullaris and the distal spinal cord appear unremarkable with regards to their signa l intensity and morphology. Bones/Discs: No abnormal bone marrow edema on inversion recovery sequences. There is fixation hardwar e extending from L2 to to S1. T12-L1: No evidence of significant spinal canal stenosis or neural foraminal stenosis. L1-L2: No evidence of significant spinal canal stenosis or neural foraminal stenosis. L2-L3: No evidence of significant spinal canal stenosis or neural foraminal stenosis. L3-L4: No evidence of significant spinal canal stenosis or neural foraminal stenosis. L4-L5: No evidence of significant spinal canal stenosis or neural foraminal stenosis. L5-S1: Discectomy changes at this level. No significant spinal canal or neural foraminal stenosis. No significant spinal canal or neural foraminal stenosis in the remainder of the visualized levels. Other findings: None. IMPRESSION: Post surgical changes without evidence of significant spinal canal or neural foraminal stenosis. Post contrast imaging does not demonstrate evidence for abnormal enhancement.
== END | disposition home or self-care (01) ==
LOC: RADMRIMAIN 17:48
PROVIDERS: ATTEND Neurological Surgery
DX: M47.26 Other spondylosis with radiculopathy, lumbar region (principal)
CPT/HCPCS: 72158

== ENCOUNTER → 2023-04-09 | Outpatient (CLI) | payer MEDICARE ==
[2023-04-09 09:56] VITALS: BP 171/80; PULSE 78; RESP 15; TEMP 98.2
--- NOTE | 2023-04-09 14:18 | P.PAINPG ---
PQRS Measure Charge Sheet Comment: HISTORY OF PRESENT ILLNESS: 67 yr old female as a referral from Dr Juan C Cantu presents today w severe and chronic LBP secondary to post laminectomy syndrome for evaluation. Pt states pain level is provoked at 6/10 in intensity, constant, localized in the lower lumbar spine, achy in character w shooting pain towards the BL buttocks. Pain is provoked by walking for periods of 20 min or more. Pain is alleviated by medications (Neurontin, Tyl), topical, heat, ice, PT x 6 wks which ended in Mar, repositioning and rest. Oswestry axial pain score at 20. PMH: OA, Hypothyroid Disorder, Anxiety PSH: Colonoscopy (2021), Appendectomy, L3-S1 Fusion Surgery, Section, Cholecystectomy, Hysterectomy, R Shoulder Surgery, Hemorrhoidectomy, Vein Stripping, Sinus SUrgery SH: Never smoker, Occasional ETOH use, No illicit drug use FH: Non contributory All: See list Meds: See list REVIEW OF ORGAN SYSTEMS: CONSTITUTIONAL: No fevers or chills. No recent weight loss. NEUROLOGICAL: + numbness and tingling along the distal extremities. No seizure disorders or headaches. MUSCULOSKELETAL: + pain PSYCHIATRIC: Denies current depression or suicidal thoughts. Physical Examinations : Constitutional : Cooperative , not in acute distress . Neurologic : Cranial nerve II to XII intact. No focal neurological deficits. Psychiatric : alert & oriented x 3. Matching mood & appropriate affect. Judgment & insight intact. Musculoskeletal : Cervical Spine Motor strength in the deltoid and biceps: Normal right side. Normal Left side Motor strength biceps and the wrist extensors: Normal right side . Normal left side Motor strength in the triceps muscle: Normal right side. Normal left side Deep tendon reflexes: Normal at the biceps. Normal at Brachioradialis. Normal at triceps Vertebral body tenderness to deep palpation over Cervical facet loading test: positive bilaterally Spurling test: positive bilaterally Neck distraction test: positive bilaterally Brit sign: positive bilaterally Lumbar spine Motor strength lower extremities ,thigh and legs 5/5 Right side , 5/5 Left side Deep tendon reflexes : Normal Knee Jerk. Normal Ankle Jerk Vertebral body tenderness over Lundberg Test positive Lumbar facet Loading Test: positive Right / positive Left Range of motion of the lumbar spine Flexion 30 degrees, extension 10 degrees Straight Leg Raise test: Left/ Right positive at degree Hugh test: positive right / positive left. Severe tenderness over the Sacroiliac joint on the Right / Left sides Gaenslen test: positive bilaterally Seated flexion test: positive bilaterally. Sacral spine : Severe tenderness over the Sacroiliac joint: right side / left side Range of motion: Flexion of the lumbar spine <60 degrees Range of motion: Extension of the lumbar spine <20 degrees Gaenslen's Test positive L> R Hugh test: positive right side < left side Thigh Thrust Test BL Sacral Thrust Test Imaging: MRI without contrast of the lumbar spine from a 01/22/23 reviewed Assessment/ Plan : Post laminectomy syndrome Recommendation of BL SI joint injection #1. May need a series for optimal pain relief. Risks, benefits of procedure discussed and patient verbalized understanding. Admits to aspirin or anti- coagulant use or medical history of diabetes. Protocol for discontinuation/ continuation of medications king procedure discussed. Minimal anesthesia provided, if clinically indicated, consisting of Versed and Fentanyl. All questions answered. I have spent greater than 30 minutes on patient care today. Dr Johnson was available by phone for the evaluation of this patient. The time was used to review the medical records including relevant urine studies and Prescription history (MAPs), review of the available imaging, evaluation and examination of the patient, coordination of care with the medical staff and if applicable referring physicians, as well as creation of the medical record PQRS Narrative: Smoking Status Former smoker Home Medications: Ambulatory Orders Aspirin [Adult Low Dose Aspirin EC] 325 mg PO Q48H 06/30/15 Gabapentin [Neurontin] 300 mg PO BID 05/10/22 clonazePAM [KlonoPIN] 1 mg PO DIRECTED PRN 05/10/22 tiZANidine HCL [Zanaflex] 4 mg PO BID 05/10/22 Levothyroxine Sodium [Synthroid] 125 mcg PO DAILY 05/12/22 Controlled Substance Measures - Controlled Substance Measures Is patient prescribed a controlled substance at discharge?: No
== END ==
LOC: PNWHC3 09:02
PROVIDERS: ATTEND Specialist
DX: M51.36 Other intervertebral disc degeneration, lumbar region (principal); M96.1 Postlaminectomy syndrome, not elsewhere classified; M19.90 Unspecified osteoarthritis, unspecified site; E03.9 Hypothyroidism, unspecified; F41.9 Anxiety disorder, unspecified; Z87.891 Personal history of nicotine dependence; Z88.5 Allergy status to narcotic agent; Z88.8 Allergy status to other drugs, medicaments and biological substances; Z88.0 Allergy status to penicillin; Z79.82 Long term (current) use of aspirin; Z79.890 Hormone replacement therapy
CPT/HCPCS: 99211

== ENCOUNTER → 2023-04-26 | Day surgery (SDC) | payer MEDICARE ==
[~2023-04-26] MED LIST changes: -DENOSUMAB 60 MG/ML 1 ML SYRINGE SQ NR; +IOPAMIDOL M200 10 ML VIAL ONE; +LACTATED RINGERS 1,000 ML IV SCH; +ROPIVACAINE 5MG/ML 20ML VIAL ONE; +methylPREDNISolone ACETATE 80 MG/ML 1 ML VIAL ONE
--- NOTE | 2023-04-26 12:36 | P.PCN ---
Date of Procedure: 04/26/23 Procedure(s) Performed: Procedure= Right sacroiliac joints steroid injection under fluoroscopy guidance (fluoroscopy image stored on file in the radiology Department ) Preoperative diagnosis= 1- bilateral sacroiliitis 2-failed back surgery syndrome lumbar area. Postoperative diagnosis=1-bilateral sacroiliitis. 2-failed back surgery syndrome lumbar area. Complication = none Condition= stable Anesthesia= local anesthesia with ropivacaine 0.5% 4 ml only Indication for the procedure= patient complaining of low back pain , examination was positive for severe tenderness over the sacroiliac joints bilaterally and patient diagnosed with sacroiliitis, for this reason , she was good candidate for sacroiliac joint steroid injection. Description of the procedure= procedure risk and benefits discussed with the patient, including but not limited, risk of infection and bleeding, and ALLERGIC reaction to the medication and not complete pain relief and patient agreed with the preceding patient taken to the operating room, placed in prone position or standard monitors applied to the patient then after induction of anesthesia back prepped with chlorhexidine 3 times , Then under strict sterile technique, first I did the right sacroiliac joint the which was identified under fluoroscopy guidance been local infiltration of the skin and subcu interstitial with lidocaine 1% then 22-gauge Quincke Needle advanced slowly under fluoroscopy and placed in the right sacroiliac joint needle placement confirmed with AP and oblique and lateral view, then after that Isovue 200 one mL injected which confirmed the correct needle placement with the appropriate arthrogram of the sacroiliac joint, and after appropriate needle placement confirmed and after negative aspiration, or heme , then Ropivacaine 0.5% 2 mL, and 40 mg of Depo-Medrol mixed together and injected in the right sacroiliac joint after negative aspiration patient tolerated the procedure well without any complication. The patient was scheduled to have bilateral sacroiliac joint steroid injection, then when I looked at the left sacroiliac joint, I found out that the patient had fusion of the left sacroiliac joint, and there was no joint space in the left sacroiliac joint , for this reason I did not do the left sacroiliac joint steroid injection, in the future we can consider doing spinal cord stimulator versus left sacroiliac joint peripheral nerve stimulator.
--- NOTE | 2023-04-26 13:19 | FL ---
Intraoperative/procedural fluoroscopic services were provided. Total fluoroscopy time is 8 seconds wi th a total of 2 submitted images to PACS. Please see the operative/procedural note for further detail s. DAP: [id number] mGym2
[2023-04-26 16:05] VITALS: BP 169/75; PULSE 72; RESP 14; TEMP 98.7
== END ==
LOC: ORPAIN 11:12
PROVIDERS: ATTEND Specialist
DX: M46.1 Sacroiliitis, not elsewhere classified (principal); M96.1 Postlaminectomy syndrome, not elsewhere classified; Z88.0 Allergy status to penicillin; Z88.1 Allergy status to other antibiotic agents; Z88.5 Allergy status to narcotic agent; Z88.8 Allergy status to other drugs, medicaments and biological substances; Z88.9 Allergy status to unspecified drugs, medicaments and biological substances
CPT/HCPCS: J1040; Q9966; J2795; G0260

== ENCOUNTER → 2023-05-16 | Outpatient (CLI) | payer MEDICARE ==
[~2023-05-16] MED LIST changes: +DENOSUMAB 60 MG/ML 1 ML SYRINGE SQ NR; -IOPAMIDOL M200 10 ML VIAL ONE; -LACTATED RINGERS 1,000 ML IV SCH; -ROPIVACAINE 5MG/ML 20ML VIAL ONE; -methylPREDNISolone ACETATE 80 MG/ML 1 ML VIAL ONE
[2023-05-16 13:09] VITALS: BP 168/87; PULSE 83; RESP 16; TEMP 97.7
== END ==
LOC: PROCWHC3 12:45
PROVIDERS: ATTEND Family Medicine
DX: M81.0 Age-related osteoporosis without current pathological fracture (principal)
CPT/HCPCS: 96372; J0897

== ENCOUNTER → 2023-05-17 | Outpatient (CLI) | payer MEDICARE ==
--- NOTE | 2023-05-17 14:51 | P.PAINPG ---
PQRS Measure Charge Sheet Comment: HISTORY OF PRESENT ILLNESS: 67 yr old female presents today w severe and chronic LBP secondary to post laminectomy syndrome for evaluation s/p R SI injection. Pt states she experienced 65% pain relief for the last 3 wks s/p procedure. Pt states pain level is provoked at 6/10 in intensity, constant, localized in the lower lumbar spine, achy in character w shooting pain towards the BL buttocks. Pain is provoked by walking for periods of 20 min or more. Pain is alleviated by medications, topical, heat, ice, PT x 6 wks which ended in Mar, repositioning and rest. Oswestry axial pain score at 21. Interventional procedures include R SI x1 Medications include Neurontin, Tyl REVIEW OF ORGAN SYSTEMS: CONSTITUTIONAL: No fevers or chills. No recent weight loss. NEUROLOGICAL: + numbness and tingling along the distal extremities. No seizure disorders or headaches. MUSCULOSKELETAL: + pain PSYCHIATRIC: Denies current depression or suicidal thoughts. Physical Examinations : Constitutional : Cooperative , not in acute distress . Neurologic : Cranial nerve II to XII intact. No focal neurological deficits. Psychiatric : alert & oriented x 3. Matching mood & appropriate affect. Judgment & insight intact. Musculoskeletal : Cervical Spine Motor strength in the deltoid and biceps: Normal right side. Normal Left side Motor strength biceps and the wrist extensors: Normal right side . Normal left side Motor strength in the triceps muscle: Normal right side. Normal left side Deep tendon reflexes: Normal at the biceps. Normal at Brachioradialis. Normal at triceps Vertebral body tenderness to deep palpation over Cervical facet loading test: positive bilaterally Spurling test: positive bilaterally Neck distraction test: positive bilaterally Brit sign: positive bilaterally Lumbar spine Motor strength lower extremities ,thigh and legs 5/5 Right side , 5/5 Left side Deep tendon reflexes : Normal Knee Jerk. Normal Ankle Jerk Vertebral body tenderness over L5 Lundberg Test positive Lumbar facet Loading Test: positive Right / positive Left Range of motion of the lumbar spine Flexion 30 degrees, extension 10 degrees Straight Leg Raise test: Left/ Right positive at 35 degrees Hugh test: positive right / positive left. Severe tenderness over the Sacroiliac joint on the Right / Left sides Gaenslen test: positive bilaterally Seated flexion test: positive bilaterally. Sacral spine : Severe tenderness over the Sacroiliac joint: right side / left side Range of motion: Flexion of the lumbar spine <60 degrees Range of motion: Extension of the lumbar spine <20 degrees Gaenslen's Test positive L> R Hugh test: positive right side < left side Thigh Thrust Test BL Sacral Thrust Test Imaging: MRI without contrast of the lumbar spine from a 01/22/23 reviewed Assessment/ Plan : Post laminectomy syndrome Recommendation of BL TFESI L5-S1. May need a series for optimal pain relief. R isks, benefits of procedure discussed and patient verbalized understanding. Admits to aspirin or anti- coagulant use or medical history of diabetes. Protocol for discontinuation/ continuation of medications king procedure discussed. Minimal anesthesia provided, if clinically indicated, consisting of Versed and Fentanyl. All questions answered. I have spent greater than 30 minutes on patient care today. Dr Johnson was available by phone for the evaluation of this patient. The time was used to review the medical records including relevant urine studies and Prescription history (MAPs), review of the available imaging, evaluation and examination of the patient, coordination of care with the medical staff and if applicable referring physicians, as well as creation of the medical record PQRS Narrative: Smoking Status Former smoker Home Medications: Ambulatory Orders Gabapentin [Neurontin] 600 mg PO BID 05/10/22 clonazePAM [KlonoPIN] 1 mg PO HS PRN 05/10/22 tiZANidine HCL [Zanaflex] 4 mg PO BID PRN 05/10/22 Levothyroxine Sodium [Synthroid] 125 mcg PO QAM 05/12/22 Acetaminophen [Tylenol Extra Strength] 500 mg PO Q6H PRN 04/25/23 Denosumab [Prolia] 60 mg SQ QMONTHLY 04/25/23 Diclofenac Sodium [Voltaren] 75 mg PO BID 04/25/23 Dicyclomine [Bentyl] 10 mg PO DAILY PRN 04/25/23 Lisinopril-Hctz 20-12.5 mg [Zestoretic 20-12.5] 1 tab PO QAM 04/25/23 Multivitamins, Thera [Multivitamin (formulary)] 1 tab PO QAM 04/25/23 Sennosides [Senokot] 8.6 mg PO DAILY PRN 04/25/23 Controlled Substance Measures - Controlled Substance Measures Is patient prescribed a controlled substance at discharge?: Yes When asked, does pt state using other controlled substances?: No If prescribed controlled substance>3 days was MAPS reviewed?: Prescribed <3 Days
[2023-05-17 15:02] VITALS: BP 174/92; PULSE 65; RESP 16; TEMP 97.8
== END ==
LOC: PNWHC3 10:20
PROVIDERS: ATTEND Specialist
DX: M96.1 Postlaminectomy syndrome, not elsewhere classified (principal); Z87.891 Personal history of nicotine dependence; Z88.5 Allergy status to narcotic agent; Z88.1 Allergy status to other antibiotic agents; Z88.8 Allergy status to other drugs, medicaments and biological substances; Z88.0 Allergy status to penicillin; Z91.048 Other nonmedicinal substance allergy status; Z91.041 Radiographic dye allergy status
CPT/HCPCS: 99211

== ENCOUNTER 2023-06-05 08:40 | Day surgery (SDC) | payer MEDICARE ==
[2023-06-05] MEDS ORDERED: DEXAMETHASONE SOD PHOSPHATE 10 MG/ML 1 ML VIAL ONE (09:16)
[2023-06-05] MEDS ORDERED: IOPAMIDOL M200 10 ML VIAL ONE (09:16)
[2023-06-05 09:17] VITALS: TEMP 97.5
--- NOTE | 2023-06-05 09:31 | P.PCN ---
Date of Procedure: 06/05/23 Description of Procedure: PREOPERATIVE DIAGNOSIS: Lumbar radiculopathy POSTOPERATIVE DIAGNOSIS: Lumbar radiculopathy PROCEDURE 1. Transforaminal epidural steroid injection under fluoroscopic guidance BILATERAL L5/S1 2. Lumbar epidurogram IMAGING Fluoroscopy was used, images where saved to the medical record ANESTHESIA: LOCAL ONLY PROCEDURE DESCRIPTION / TECHNIQUE: The patient was seen and identified in the preoperative area. Risks, benefits, complications, and alternatives were discussed with the patient. The patient agreed to proceed with the procedure and signed the consent, vital signs were stable prior to the procedure. Patient was taken to the OR and time out was completed. The patient was placed in the prone position on procedure table and a pillow was placed under the abdomen to reduce lumbar lordosis. The lumbosacral area was prepped and draped in the usual sterile fashion. Vital signs were closely monitored during the procedure. Conscious sedation was used. Using oblique fluoroscopy, the chin of the "Mejia dog" at the pedicle and the skin and deeper tissues just below was localized with 1% lidocaine. Subsequently, a 22-gauge 3.5-inch spinal needle was advanced under a tunneled view fluoroscopic guidance just underneath the chin of the "Mejia dog". Under lateral fluoroscopy, the needle was then advanced to the posterior border interforaminal space. After negative aspiration of CSF and blood and with no paresthesias, 1 mL of Omnipaque-240 contrast dye was injected excellent epidurogram. Subsequently, a solution totalling 2ml of dexamethasone and PFNS was injected after negative aspiration (total of 10mg of dexamethasone was used). The needle was removed intact. COMPLICATIONS: None DISPOSITION: The patient was placed in a supine position and transferred to the recovery area in a stable condition for observation. There was no evidence of lower extremity motor or sensory deficit after the procedure. Patient was discharged from the recovery room after meeting discharge criteria. Home discharge instructions were given to the patient by the staff. The patient was reexamined prior to discharge. Follow up as directed If the patient does not have good relief from this injection I'll consider attempting a caudal approach in the future..
--- NOTE | 2023-06-05 09:46 | FL ---
Intraoperative/procedural fluoroscopic services were provided for thoracic epidural steroid injection . Total fluoroscopy time is 28.1 seconds with a total of 2 submitted images to PACS. Total DAP 0.0967 5 mGym2. Please see the operative note for further details.
[2023-06-05 09:57] VITALS: BP 152/67; PULSE 67; RESP 17
== END 2023-06-05 09:58 | disposition home or self-care (01) ==
LOC: ORPAIN 08:40
PROVIDERS: ATTEND Hospitalist
DX: M54.16 Radiculopathy, lumbar region (principal); Z88.8 Allergy status to other drugs, medicaments and biological substances; Z88.5 Allergy status to narcotic agent
CPT/HCPCS: 64483; J1100; Q9966

== ENCOUNTER → 2023-06-28 | Outpatient (CLI) | payer MEDICARE ==
[2023-06-28 08:43] VITALS: BP 154/94; PULSE 15; RESP 15; TEMP 98.5
--- NOTE | 2023-06-28 10:30 | P.PAINPG ---
PQRS Measure Charge Sheet Comment: HISTORY OF PRESENT ILLNESS: 67 yr old female presents today w severe and chronic LBP secondary to post laminectomy syndrome for evaluation s/p BL TFESI L5-S1 #1. Pt states she experienced 50 % pain relief for the last 2 wks s/p procedure. Pt states pain level is provoked at 6/10 in intensity, constant, localized in the lower lumbar spine, predominantly axial, achy in character w shooting pain towards the BL buttocks. Pain is provoked by walking for periods of 20 min or more. Pain is alleviated by medications, topical, heat, ice, PT x 6 wks which ended in Mar, repositioning and rest. Oswestry axial pain score at 20. Interventional procedures include R SI x1, BL TFESI L5-S1 x1 Medications include Neurontin, Tyl REVIEW OF ORGAN SYSTEMS: CONSTITUTIONAL: No fevers or chills. No recent weight loss. NEUROLOGICAL: + numbness and tingling along the distal extremities. No seizure disorders or headaches. MUSCULOSKELETAL: + pain PSYCHIATRIC: Denies current depression or suicidal thoughts. Physical Examinations : Constitutional : Cooperative , not in acute distress . Neurologic : Cranial nerve II to XII intact. No focal neurological deficits. Psychiatric : alert & oriented x 3. Matching mood & appropriate affect. Judgment & insight intact. Musculoskeletal : Cervical Spine Motor strength in the deltoid and biceps: Normal right side. Normal Left side Motor strength biceps and the wrist extensors: Normal right side . Normal left side Motor strength in the triceps muscle: Normal right side. Normal left side Deep tendon reflexes: Normal at the biceps. Normal at Brachioradialis. Normal at triceps Vertebral body tenderness to deep palpation over Cervical facet loading test: positive bilaterally Spurling test: positive bilaterally Neck distraction test: positive bilaterally Brit sign: positive bilaterally Lumbar spine Motor strength lower extremities ,thigh and legs 5/5 Right side , 5/5 Left side Deep tendon reflexes : Normal Knee Jerk. Normal Ankle Jerk Vertebral body tenderness over L5 Lundberg Test positive Lumbar facet Loading Test: positive Right / positive Left Range of motion of the lumbar spine Flexion 30 degrees, extension 10 degrees Straight Leg Raise test: Left/ Right positive at 35 degrees Hugh test: positive right / positive left. Severe tenderness over the Sacroiliac joint on the Right / Left sides Gaenslen test: positive bilaterally Seated flexion test: positive bilate rally. Sacral spine : Severe tenderness over the Sacroiliac joint: right side / left side Range of motion: Flexion of the lumbar spine <60 degrees Range of motion: Extension of the lumbar spine <20 degrees Gaenslen's Test positive L> R Hugh test: positive right side < left side Thigh Thrust Test BL Sacral Thrust Test Imaging: MRI without contrast of the lumbar spine from a 01/22/23 reviewed Assessment/ Plan : Post laminectomy syndrome Recommendation of Caudal STEFANIA w Lysis. May need a series for optimal pain relief. Risks, benefits of procedure discussed and patient verbalized understanding. Admits to aspirin or anti- coagulant use or medical history of diabetes. Prot ocol for discontinuation/ continuation of medications king procedure discussed. Minimal anesthesia provided, if clinically indicated, consisting of Versed and Fentanyl. All questions answered. I have spent greater than 30 minutes on patient care today. Dr Johnson was available by phone for the evaluation of this patient. The time was used to review the medical records including relevant urine studies and Prescription history (MAPs), review of the available imaging, evaluation and examination of the patient, coordination of care with the medical staff and if applicable referring physicians, as well as creation of the medical record - Pain Location Bilateral Lower Back Non-Pharmacological Interventions: Heat, Ice, Inactivity, Position/Reposition Pharmacological Interventions: Epidural, PRN Medication PQRS Narrative: Smoking Status Former smoker Hx Alcohol Use (MH) Yes: WINE Home Medications: Ambulatory Orders Gabapentin [Neurontin] 600 mg PO BID 05/10/22 clonazePAM [KlonoPIN] 1 mg PO HS PRN 05/10/22 tiZANidine HCL [Zanaflex] 4 mg PO BID PRN 05/10/22 Levothyroxine Sodium [Synthroid] 125 mcg PO QAM 05/12/22 Acetaminophen [Tylenol Extra Strength] 500 mg PO Q6H PRN 04/25/23 Denosumab [Prolia] 60 mg SQ QMONTHLY 04/25/23 Diclofenac Sodium [Voltaren] 75 mg PO BID 04/25/23 Dicyclomine [Bentyl] 10 mg PO DAILY PRN 04/25/23 Lisinopril-Hctz 20-12.5 mg [Zestoretic 20-12.5] 1 tab PO QAM 04/25/23 Multivitamins, Thera [Multivitamin (formulary)] 1 tab PO QAM 04/25/23 Sennosides [Senokot] 8.6 mg PO DAILY PRN 04/25/23 diazePAM [Valium] 10 mg PO Q24H PRN 05/31/23 Controlled Substance Measures - Controlled Substance Measures Is patient prescribed a controlled substance at discharge?: No
== END ==
LOC: PNWHC3 08:16
PROVIDERS: ATTEND Anesthesiology
DX: M96.1 Postlaminectomy syndrome, not elsewhere classified (principal); Z87.891 Personal history of nicotine dependence; Z88.8 Allergy status to other drugs, medicaments and biological substances; Z88.5 Allergy status to narcotic agent; Z91.048 Other nonmedicinal substance allergy status; Z88.0 Allergy status to penicillin; Z88.1 Allergy status to other antibiotic agents
CPT/HCPCS: 99211

== ENCOUNTER 2023-08-14 14:50 | Emergency (ER) | payer MEDICARE ==
--- NOTE | 2023-08-14 15:01 | ED ---
General Adult HPI - General Source: RN notes reviewed <Radha Hammond - Last Filed: 08/14/23 15:00> <Ck Juarez - Last Filed: 08/14/23 22:37> - General Stated complaint: spinal fluid out of right side of nose Time Seen by Provider: 08/14/23 15:00 - History of Present Illness Initial comments: 57-year-old female presents the emergency department with a chief complaint of right-sided headache. She is also complaining of clear nasal drainage. (Radha Hammond) 67-year-old female presenting with right-sided headache, and clear nasal yue inage which began abruptly. Patient had no preceding symptoms. She states she bent over and had a spontaneous leakage of significant amount of fluid from her right nostril. She had contacted her ENT surgeon who recommended she present to the emergency department with concern for spontaneous CSF leak. She had no recent trauma. No recent surgery. She states she had remote polyp surgery of her sinuses about 8 years ago. No fever. No cough. (Ck Juarez) - Related Data Home Medications Medication Instructions Recorded Confirmed Gabapentin [Neurontin] 600 mg PO BID 05/10/22 05/31/23 clonazePAM [KlonoPIN] 1 mg PO HS PRN 05/10/22 05/31/23 tiZANidine HCL [Zanaflex] 4 mg PO BID PRN 05/10/22 05/31/23 Levothyroxine Sodium [Synthroid] 125 mcg PO QAM 05/12/22 05/31/23 Acetaminophen [Tylenol Extra 500 mg PO Q6H PRN 04/25/23 05/31/23 Strength] Denosumab [Prolia] 60 mg SQ QMONTHLY 04/25/23 05/31/23 Diclofenac Sodium [Voltaren] 75 mg PO BID 04/25/23 05/31/23 Dicyclomine [Bentyl] 10 mg PO DAILY PRN 04/25/23 05/31/23 Lisinopril-Hctz 20-12.5 mg 1 tab PO QAM 04/25/23 05/31/23 [Zestoretic 20-12.5] Multivitamins, Thera [Multivitamin 1 tab PO QAM 04/25/23 05/31/23 (formulary)] Sennosides [Senokot] 8.6 mg PO DAILY PRN 04/25/23 05/31/23 diazePAM [Valium] 10 mg PO Q24H PRN 05/31/23 05/31/23 Allergies Allergy/AdvReac Type Severity Reaction Status Date / Time abaloparatide [From Tymlos] Allergy Unknown Verified 05/31/23 15:22 codeine Allergy Nausea & Verified 05/31/23 15:22 Vomiting duloxetine [From Cymbalta] Allergy Rash/Hives Verified 05/31/23 15:22 erythromycin base Allergy Rash/Hives Verified 05/31/23 15:22 [Erythromycin Base] metronidazole [From Flagyl] Allergy Vomiting Verified 05/31/23 15:22 nickel Allergy red skin Verified 05/31/23 15:22 amoxicillin trihydrate AdvReac Abdominal Verified 05/31/23 15:22 [From Augmentin] Pain baclofen AdvReac Dyspnea Verified 08/14/23 15:02 morphine AdvReac Nausea & Verified 05/31/23 15:22 Vomiting potassium clavulanate AdvReac Abdominal Verified 05/31/23 15:22 [From Augmentin] Pain desinity contrast Allergy Chest Pain Uncoded 05/31/23 15:22 Review of Systems ROS Other: All systems not noted in ROS Statement are negative. <Radha Hammond - Last Filed: 08/14/23 15:00> ROS Other: All systems not noted in ROS Statement are negative. <Ck Juarez - Last Filed: 08/14/23 22:37> ROS Statement: Those systems with pertinent positive or pertinent negative responses have been documented in the HPI. Past Medical History Past Medical History: Deep Vein Thrombosis (DVT), Hypertension, Thyroid Disorder Additional Past Medical History / Comment(s): chronic back pain, osteoporosis, mild L foot drop, 2005 dvt L calf post hysterectomy. History of Any Multi-Drug Resistant Organisms: None Reported Past Surgical History: Adenoidectomy, Appendectomy, Back Surgery, Section, Cholecystectomy, Hysterectomy, Orthopedic Surgery, Tonsillectomy Additional Past Surgical History / Comment(s): Pain clinic procedures, varicose vein removal, right shoulder surg., colonoscopy, hemorrhoidectomy, sinus surgery, spinal fusions. Past Anesthesia/Blood Transfusion Reactions: Postoperative Nausea & Vomiting (PONV) Smoking Status: Never smoker - Past Family History Father Family Medical History: Coronary Artery Disease (CAD) <Radha Hammond - Last Filed: 08/14/23 15:00> General Exam <Radha Hammond - Last Filed: 08/14/23 15:00> General appearance: alert, in no apparent distress Head exam: Present: atraumatic, normocephalic Eye exam: Present: normal appearance, PERRL ENT exam: Present: normal exam, normal oropharynx Neck exam: Present: normal inspection. Absent: tenderness Respiratory exam: Present: normal lung sounds bilaterally. Absent: respiratory distress, wheezes Cardiovascular Exam: Present: regular rate, normal rhythm GI/Abdominal exam: Present: soft. Absent: distended, tenderness, guarding Neurological exam: Present: alert, oriented X3 Psychiatric exam: Present: normal affect, normal mood Skin exam: Present: warm, dry, intact <Ck Juarez - Last Filed: 08/14/23 22:37> - General Exam Comments Initial Comments: Visual Physical Exam Vital signs reviewed General: Well-appearing, nontoxic, no acute distress. Head: Normocephalic, atraumatic Eyes: PERRLA, EOMI ENT: Airway patent Chest: Nonlabored breathing Skin: No visual rash, normal skin tone Neuro: Alert and oriented 3 Musculoskeletal: No gross abnormalities (Radha Hammond) Course <Ck Juarez - Last Filed: 08/14/23 22:37> Vital Signs 08/14/23 08/14/23 14:56 22:30 Temperature 97.4 F L Pulse Rate 84 85 Respiratory 18 19 Rate Blood Pressure 182/98 180/75 O2 Sat by Pulse 100 100 Oximetry - Reevaluation(s) Reevaluation #1: 08/14/23 2160 chest chest case with Dr. Osorio covering for ENT. He does recommend transfer for ENT and possibly neurosurgery evaluation. There was discussion beta 2 transferrin Test on specimen however this is not available through our lab at this time. (Ck Juarez) Medical Decision Making <Radha Hammond - Last Filed: 08/14/23 15:00> - Lab Data Result diagrams: 08/14/23 15:18 08/14/23 15:18 <Ck Juarez - Last Filed: 08/14/23 22:37> - Medical Decision Making I performed the quick note portion of this exam, verbal signature Radha Hammond PA-C (Radha Hammond) Was pt. sent in by a medical professional or institution (JANIS Pandya, [facility], urgent care, hospital, or senior living...) When possible be specific @ -sent in by ENT Did you speak to anyone other than the patient for history (EMS, parent, family, police, friend...)? What history was obtained from this source @ -[No] Did you review nursing and triage notes (agree or disagree)? Why? @ -[I reviewed and agree with nursing and triage notes] Were old charts reviewed (outside hosp., previous admission, EMS record, old EKG, old radiological studies, urgent care reports/EKG's, senior living records)? Report findings @ -[No old charts were reviewed] Differential Diagnosis (chest pain, altered mental status, abdominal pain women, abdominal pain men, vaginal bleeding, weakness, fever, dyspnea, syncope, headache, dizziness, GI bleed, back pain, seizure, CVA, palpatations, mental health, musculoskeletal)? @ -[sinusitis, CSF leak EKG interpreted by me (3pts min.). @ -[As above] X-rays interpreted by me (1pt min.). @ -[None done] CT interpreted by me (1pt min.). @ CT brain and CT facial bones showing a fluid-filled left maxillary sinus without definitive CSF leak U/S interpreted by me (1pt. min.). @ -[None done] What testing was considered but not performed or refused? (CT, X-rays, U/S, labs)? Why? @ -[None] What meds were considered but not given or refused? Why? @ -[None] Did you discuss the management of the patient with other professionals (jackie mills i.e. JANIS Pandya, [employer] TE[facility], lab, RT, psych nurse, social media senior associate, shaping machine operator, teacher, radio officer, case aide)? Give summary @ -[is discussed with Dr. Osorio who recommends transfer for higher level care, case discussed with Dr. Jiménez at [facility], Will accept transfer. Was smoking cessation discussed for >3mins.? @ -[No] Was critical care preformed (if so, how long)? @ -[No] Were there social determinants of health that impacted care today? How? (Homelessness, low income, unemployed, alcoholism, drug addiction, transportation, low edu. Level, literacy, decrease access to med. care, senior living, rehab)? @ -[No] Was there de-escalation of care discussed even if they declined (Discuss DNR or withdrawal of care, Hospice)? DNR status @ -[No] What co-morbidities impacted this encounter? (DM, HTN, Smoking, COPD, CAD, Cancer, CVA, ARF, Chemo, Hep., AIDS, mental health diagnosis, sleep apnea, morbid obesity)? @ -[None] Was patient admitted / discharged? Hospital course, mention meds given and route, prescriptions, significant lab abnormalities, going to OR and other pertinent info. @ -67 -year-old female presenting with spontaneous right sided ear drainage from her right nostril. There was concern for CSF leak this would be spontaneous, no trauma reported. No fever. No preceding symptoms. CT imaging does show fluid within the right maxillary sinus without definitive location of possible CSF leak. Laboratory testing is unremarkable. Testing specific to CSF fluid including beta 2 transferrin, not available. Patient requests transfer to [facility], these arrangements are made. Undiagnosed new problem with uncertain prognosis? @ -[No] Drug Therapy requiring intensive monitoring for toxicity (Heparin, Nitro, Insulin, Cardizem)? @ -[No] Were any procedures done? @ -[No] Diagnosis/symptom? @ right sinusitis, rule out CSF leak Acute, or Chronic, or Acute on Chronic? @ -acute Uncomplicated (without systemic symptoms) or Complicated (systemic symptoms)? @ -[complicated] Side effects of treatment? @ -[No] Exacerbation, Progression, or Severe Exacerbation? @ -[No] Poses a threat to life or bodily function? How? (Chest pain, [place], [place], pneumonia, PE, COPD, DKA, ARF, appy, cholecystitis, CVA, Diverticulitis, Homicidal, Suicidal, threat to staff... and all critical care pts) @ -[yes, CSF leak, sepsis] (Ck Juarez) - Lab Data Lab Results 08/14/23 08/14/23 08/14/23 Range/Units 15:18 15:18 19:31 WBC 7.4 (3.8-10.6) k/uL RBC 4.25 (3.80-5.40) m/uL Hgb 13.7 (11.4-16.0) gm/dL Hct 40.6 (34.0-46.0) % MCV 95.5 (80.0-100.0) fL MCH 32.2 (25.0-35.0) pg MCHC 33.7 (31.0-37.0) g/dL RDW 13.0 (11.5-15.5) % Plt Count 280 (150-450) k/uL MPV 7.2 Neutrophils % 73 % Lymphocytes % 16 % Monocytes % 7 % Eosinophils % 2 % Basophils % 1 % Neutrophils # 5.4 (1.3-7.7) k/uL Lymphocytes # 1.2 (1.0-4.8) k/uL Monocytes # 0.5 (0-1.0) k/uL Eosinophils # 0.2 (0-0.7) k/uL Basophils # 0.0 (0-0.2) k/uL Sodium 134 L (137-145) mmol/L Potassium 4.0 (3.5-5.1) mmol/L Chloride 93 L (98-107) mmol/L Carbon Dioxide 29 (22-30) mmol/L Anion Gap 12 mmol/L BUN 9 (7-17) mg/dL Creatinine 0.61 (0.52-1.04) mg/dL Est GFR (CKD-EPI)AfAm >90 (>60 ml/min/1.73 sqM) Est GFR (CKD-EPI)NonAf >90 (>60 ml/min/1.73 sqM) Glucose 96 (74-99) mg/dL Calcium 10.0 (8.4-10.2) mg/dL Total Bilirubin 0.7 (0.2-1.3) mg/dL AST 31 (14-36) U/L ALT 28 (4-34) U/L Alkaline Phosphatase 80 (38-126) U/L Total Protein 7.4 (6.3-8.2) g/dL Albumin 4.5 (3.5-5.0) g/dL Influenza Type A (PCR) Not Detected (Not Detectd) Influenza Type B (PCR) Not Detected (Not Detectd) RSV (PCR) Not Detected (Not Detectd) SARS-CoV-2 (PCR) Not Detected (Not Detectd) Disposition <Radha Hammond - Last Filed: 08/14/23 15:00> Is patient prescribed a controlled substance at d/c from ED?: No Time of Disposition: 22:22 - Out of Hospital Transfer - Req. Specs Out of Hospital Transfer - Requested Specifics: Other Emergency Center <Ck Juarez - Last Filed: 08/14/23 22:37> Clinical Impression: Sinusitis Narrative: concern for spontaneous CSF leak (Ck Juarez) Disposition: OTHER INSTITUTION NOT DEFINED Condition: Stable Referrals: Juan C Cantu MD [Primary Care Provider] - 1-2 days
[2023-08-14 15:13] VITALS: TEMP 97.4
[2023-08-14 15:57] LABS: Basophils % (A) 1 %; Eosinophils # (A) 0.2 k/uL (0-0.7); Eosinophils % (A) 2 %; HCT 40.6 % (34.0-46.0); HGB 13.7 gm/dL (11.4-16.0); Lymphocytes # (A) 1.2 k/uL (1.0-4.8); Lymphocytes % (A) 16 %; MCH 32.2 pg (25.0-35.0); MCHC 33.7 g/dL (31.0-37.0); MCV 95.5 fL (80.0-100.0); Mean Platelet Volume 7.2; Monocytes # (A) 0.5 k/uL (0-1.0); Monocytes % (A) 7 %; Neutrophils # (A) 5.4 k/uL (1.3-7.7); Neutrophils % (A) 73 %; Platelet Count 280 k/uL (150-450); RBC 4.25 m/uL (3.80-5.40); WBC 7.4 k/uL (3.8-10.6)
[2023-08-14 16:13] LABS: ALT 28 U/L (4-34); AST 31 U/L (14-36); African American GFR (CKD) >90 (>60 ml/min/1.73 sqM); Albumin 4.5 g/dL (3.5-5.0); Alkaline Phosphatase 80 U/L (38-126); Anion Gap 12 mmol/L; Blood Urea Nitrogen 9 mg/dL (7-17); Carbon Dioxide 29 mmol/L (22-30); Chloride 93 mmol/L (98-107); Glucose 96 mg/dL (74-99); Non-African American GFR(CKD) >90 (>60 ml/min/1.73 sqM); Sodium 134 mmol/L (137-145); Total Bilirubin 0.7 mg/dL (0.2-1.3); Total Protein 7.4 g/dL (6.3-8.2)
--- NOTE | 2023-08-14 20:18 | CT ---
EXAMINATION TYPE: CT brain wo con DATE OF EXAM: 08/14/2023 COMPARISON: None INDICATION: RT side DIAS and nasal drainage. Sent by ENT for possible CSF fluid draining from nasal pas teresa. DLP: Combined DLP of 1731.4 mGycm, Automated exposure control for dose reduction was used. CONTRAST: None CT of the brain is performed utilizing 3 mm thick sections through the posterior fossa and 3 mm thick sections through the remaining calvarium. Study is performed within 24 hours of arrival to the hosp ital. No abnormal hyperdensity is present to suggest an acute intracranial hemorrhage. No mass lesion is evident. No acute infarcts are evident. Ventricles and sulci are appropriate for the patient age. No suspicious low volume or hydrocephalus is evident. There is an air-fluid level within the right maxillary sinus. Mucosal thickening is through the right maxillary sinus. There is mucosal thickening within posterior right ethmoid air cells. Sphenoid sinu ses left maxillary sinus and right frontal sinus are clear. 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 Mastoid a ir cells are clear. No skull base fracture is identified. If Diagnostic examination of the nasal fluid is inconclusive for CSF, nuclear medicine CSF scan could be performed for confirmation. IMPRESSION: 1. No acute intracranial process. 2. Acute right maxillary sinusitis. Please see above discussion regarding CSF
--- NOTE | 2023-08-14 20:26 | CT ---
EXAMINATION TYPE: CT facial bones w con DATE OF EXAM: 08/14/2023 COMPARISON: 06/08/2017 HISTORY: RT side DIAS and nasal drainage. Sent by ENT for possible CSF fluid draining from nasal passag e. CT DLP: Combined DLP of 1731.4 mGycm CONTRAST: 100 ml mL of Isovue 300 The paranasal sinuses are examined in the axial plane at 2 mm thick sections. Reconstructed images i n the coronal plane were obtained. There is dental amalgam scatter artifact Mucosal thickening is seen in the right maxillary sinus. There is an air-fluid level within the maxil jf sinus. Mucosal thickening is also within posterior right ethmoid air cells. Given the concern for possible CSF within the maxillary sinus, close evaluation of the skull base is performed. Some thinning of the cribriform plate may be present right of midline, example image clinton s 306 image 49. A clear defect however is not identified. There does not appear to be recent surgery. Consider history of recent trauma. Diagnostic evaluation of the fluid is inconclusive for CSF, nucle ar medicine CSF analysis could be performed. The sphenoid sinuses are clear. The frontal sinuses are clear. 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 Mast oid air cells are clear. The septum is evaluated. There is septal deviation to the left. There is been prior uncinectomies. This is an old surgery present 06/08/2017 IMPRESSION: 1. No definite abnormality to suggest a source for suspected CSF within the maxillary sinus. Acute s inusitis is favored. Please see above discussion.
[2023-08-14] MEDS ORDERED: AMPICILLIN-SULBACTAM 3 GM in SODIUM CHLORIDE 0.9% 100 ML IVPB STA (21:30)
[2023-08-14 22:31] VITALS: BP 180/75; PULSE 85; RESP 19
[2023-08-14] MEDS ORDERED: HYDROmorphone 0.5 MG/0.5 ML SYRINGE IVP STA (22:48)
== END 2023-08-15 00:21 | disposition other institution (70) ==
LOC: EC 14:50
DX: J32.9 Chronic sinusitis, unspecified (principal); I10 Essential (primary) hypertension; E07.9 Disorder of thyroid, unspecified; Z20.822 Contact with and (suspected) exposure to COVID-19; Z88.5 Allergy status to narcotic agent; Z88.1 Allergy status to other antibiotic agents; Z88.8 Allergy status to other drugs, medicaments and biological substances
CPT/HCPCS: 36415; 80053; 85025; 87636; 70487; 70450; 96365; 96375; 99285; J0295; J1170; Q9967; 82232

== ENCOUNTER → 2023-09-27 | Outpatient (CLI) | payer MEDICARE ==
--- NOTE | 2023-09-28 19:01 | MM ---
Reason for Exam: Screening (asymptomatic). Last mammogram was performed 2 year(s) and 0 month(s) ago. Patient History: Menarche at age 15. First Full-Term at age 24. Left ovary removed at age 49. Right ovary removed at age 49. Hysterectomy at age 49. Postmenopausal. Risk Values: Taina 5 year model risk: 1.4%. NCI Lifetime model risk: 4.9%. Prior Study Comparison: 03/05/2019 Bilateral Screening Mammogram, [facility]. 06/17/2020 Bilateral Screening Mammogram, [facility]. 10/10/2021 Bilateral Screening Mammogram, [facility]. Tissue Density: There are scattered fibroglandular densities. Findings: Analyzed By CAD. There is no suspicious group of microcalcifications or new suspicious mass in either breast. Overall Assessment: Negative, BI-RAD 1 Management: Screening Mammogram of both breasts in 1 year. . Patient should continue monthly self-breast exams. A clinical breast exam by your physician is recommended on an annual basis. This exam should not preclude additional follow-up of suspicious palpable abnormalities. Note on Taina scores and lifetime risk: 1. A Taina score greater than 3% is considered moderate risk. If this is the case, consider specialist referral to assess eligibility for a risk reducing agent. 2. If overall lifetime risk for the development of breast cancer is 20% or higher, the patient may qualify for future screening with alternating mammogram and breast MRI. Electronically signed and approved by: Diego Martinez M.D. Radiologist
== END | disposition home or self-care (01) ==
LOC: RADMAMWWP 11:33
PROVIDERS: ATTEND Family Medicine
DX: Z12.31 Encounter for screening mammogram for malignant neoplasm of breast (principal); Z78.0 Asymptomatic menopausal state
CPT/HCPCS: 77063; 77067

== ENCOUNTER → 2023-11-29 | Outpatient (CLI) | payer MEDICARE ==
[2023-11-29] MEDS: DENOSUMAB 60 MG/ML 1 ML SYRINGE SQ NR (14:12)
[2023-11-29 14:24] VITALS: BP 159/77; PULSE 81; RESP 16; TEMP 97.5
== END ==
LOC: PROCWHC3 13:54
PROVIDERS: ATTEND Family Medicine
DX: M81.0 Age-related osteoporosis without current pathological fracture (principal)
CPT/HCPCS: 96372; J0897

== ENCOUNTER → 2024-06-03 | Outpatient (CLI) | payer MEDICARE ==
--- NOTE | 2024-06-04 13:27 | BD ---
EXAMINATION TYPE: Axial Bone Density DATE OF EXAM: 06/03/2024 CLINICAL HISTORY: 68 years old Female. ICD-10 CODE: Z78.0 MENOPAUSAL STATE Height: 65 Weight: 140 FRAX RISK QUESTIONS: Alcohol (3 or more units per day): no Family History (Parent hip fracture): no Glucocorticoids (More than 3mos): no (Ex: prednisone, prednisolone, methylprednisolone, dexamethasone, and hydrocortisone). History of Fracture in Adulthood: no Secondary Osteoporosis: 1. Type 1 Diabetes: no 2. Hyperthyroidism: no 3. Menopause before 45: no 4. Malnutrition: no 5. Chronic liver disease: no Rheumatoid Arthritis: no Current Tobacco Use: no RISK FACTORS HISTORY OF: Surgery to Spine/Hip(right/left)/Wrist (right/left): lumbar surgery MEDICATIONS: Thyroid Medications: synthroid How Long: since age 19 EXAM MEASUREMENTS: Bone mineral densitometry was performed using the [employer] System. Bone mineral density about the R hip (g/cm2): 0.740 Bone mineral density about the L hip (g/cm2): 0.813 T Score values are as follows: -----R Neck: -2.2 -----L Neck: -1.6 -----R Total: -2.1 -----L Total: -1.5 Z Score values are as follows: -----R Neck: -0.6 -----L Neck: 0.0 -----R Total: -0.8 -----L Total: -0.2 Bone mineral density has: 0 % since study of: 05.11.2022 Bone mineral density about the L Wrist (g/cm2): 0.524 T Score values are as follows: -----Dist. R+U: -1.9 -----Prox. R+U: -1.9 -----Radius total: -2.5 Z Score values are as follows: -----Dist. R+U: -0.3 -----Prox. R+U: -0.3 -----Radius total: -0.9 Bone mineral density has: increased 8.7% study of: 05.11.2022 FRAX%s: The graph provided illustrates a 11.8 chance for a major osteoporotic fx and a 2.3chance for the hips probability for fx in 10 years time. IMPRESSION: Osteopenia (T Score between -2.5 and -1). There is slightly increased risk of fracture and the patient may be considered for treatment. Re-Screen 2-5 years. NOTE: T-SCORE=SD OF THE YOUNG ADULT MEAN. [facility], , 06/04/2024 1:25 PM
== END | disposition home or self-care (01) ==
LOC: RADBDWWP 15:14
PROVIDERS: ATTEND Family Medicine
CPT/HCPCS: 77080

== ENCOUNTER → 2025-02-10 | Outpatient (CLI) | payer MEDICARE ==
--- NOTE | 2025-02-10 12:31 | XR ---
EXAMINATION TYPE: XR lumbar spine 2 or 3V DATE OF EXAM: 02/10/2025 CLINICAL HISTORY: pain TECHNIQUE: Three views of the lumbar spine are submitted. COMPARISON: Lumbar spine radiograph 09/17/2024 FINDINGS: There are 5 lumbar type vertebral bodies identified. New anterior wedge compression deformities with sclerosis of the superior endplates involving the L1 and L2 vertebral bodies approximately 10% height loss and no retropulsion. Interval removal of bilateral pedicular screws and rods involving the lumb ar spine. Intervertebral spaces are unchanged. Extensive bone fusion changes involving the bilateral facet joints of the lumbar spine. Redemonstration of 3 left transverse oriented screws involving the left SI joint. The lumbar spine shows satisfactory alignment. Multilevel disc space narrowing with en dplate sclerosis. The overlying soft tissue appears unremarkable. Pelvic phleboliths. Surgical clips in the upper abdomen. IMPRESSION: 1. Subacute appearing anterior wedge compression deformities of the L1 and L2 vertebral bodies with approximately 10% height loss and no retropulsion. Consider further evaluation with MRI as clinically indicated. 2. Postsurgical changes of the lumbar spine and left SI joint with interval removal of bilateral ped icular screws and rods of the lumbar spine. 3. Multilevel degenerative disc disease. [facility], , 02/10/2025 12:28 PM
== END | disposition home or self-care (01) ==
LOC: RADXRMAIN 11:55
PROVIDERS: ATTEND Orthopaedic Surgery
DX: M51.360 Other intervertebral disc degeneration, lumbar region with discogenic back pain only (principal); M48.56XA Collapsed vertebra, not elsewhere classified, lumbar region, initial encounter for fracture; Z98.890 Other specified postprocedural states
CPT/HCPCS: 72100